=== PATIENT | female | born 1980 | race Caucasian/White ===

== ENCOUNTER → 2023-11-04 14:23 | Outpatient (REF) | payer OTHER, SELFPAY | LOC: RAD 14:23 | PROVIDERS: ATTENDING PHYSICIAN Physician Assistant | DX: I82.401 Acute embolism and thrombosis of unspecified deep veins of right lower extremity (principal) | CPT/HCPCS: 93971 ==

== ENCOUNTER → 2024-02-07 15:16 | Outpatient (REF) | payer OTHER, SELFPAY | LOC: MRI 3T 15:16 | PROVIDERS: ATTENDING PHYSICIAN Orthopaedic Surgery Orthopaedic Surgery of the Spine; FAMILY PHYSICIAN Physician Assistant | DX: M48.02 Spinal stenosis, cervical region (principal) | CPT/HCPCS: 72141 ==

== ENCOUNTER → 2024-03-14 16:20 | Outpatient (REF) | payer OTHER, SELFPAY | LOC: HWWDC 16:20 | PROVIDERS: ATTENDING PHYSICIAN Physician Assistant | DX: Z12.31 Encounter for screening mammogram for malignant neoplasm of breast (principal) | CPT/HCPCS: 77063; 77067 ==

== ENCOUNTER 2024-09-19 06:08 | Day surgery (SDC) | payer OTHER, SELFPAY ==
[2024-08-30 10:44] LABS: Hematocrit 37.5 % (37.0-47.0); Hemoglobin 12.2 g/dL (12.0-16.0); Mean Corp Hgb Conc. 32.5 g/dL (33.0-37.0); Mean Corpuscular Hgb 29.2 pg (27.0-31.0); Mean Corpuscular Volume 89.7 fL (81.0-99.0); Mean Platelet Volume 11.2 fL (7.4-10.4); Platelet Count 208 10^3/uL (130-400); Red Blood Cell Count 4.18 10^6/uL (4.20-5.40); Red Cell Dist. Width 13.2 % (11.5-14.5); White Blood Cell Count 5.7 10^3/uL (4.8-10.8)
[2024-08-30 11:33] LABS: ALT (SGPT) 22 U/L (0-35); AST (SGOT) 24 U/L (14-36); Albumin 3.9 g/dl (3.5-5.0); Alkaline Phosphatase 42 U/L (38-126); Blood Urea Nitrogen 15 mg/dl (7-17); Calcium 8.7 mg/dl (8.4-10.2); Carbon Dioxide 26 mmol/L (22-30); Chloride 103 mmol/L (98-107); Glucose 131 mg/dl (70-99); Sodium 136 mmol/L (135-145); Total Bilirubin 0.3 mg/dl (0.2-1.3); Total Protein 6.4 g/dl (6.3-8.2); eGFR > 60.00
[2024-08-30 12:31] VITALS: BMI 32.4
[2024-09-13 10:11] VITALS: BMI 32.4
[2024-09-19] VITALS (20 sets, daily range): BP systolic 121–181; BP diastolic 63–115; PULSE 92; O2SAT 98
[2024-09-19] MEDS: LYRICA 150 MG PO (07:27)
[2024-09-19] MEDS: SKELAXIN 800 MG PO ×2 (07:27→15:37)
[2024-09-19] MEDS: CELEBREX 200 MG PO (07:27)
[2024-09-19] MEDS: NORMOSOL-R/PLASMALYTE-A 1000 IV ×2 (07:38→13:45)
--- NOTE | 2024-09-19 08:20 | W.DS.TRANS ---
DC Summary - [employer]
-
Discharge Instructions:
Sleep Apnea Risk Low
Discharge Diagnosis/Procedures C3-[address] Chavarria 09/19/24
Diet As tolerated
Activity No strenuous activity
Driving Restrictions No driving
Instructions:
Stand-Alone Forms: Chavarria Cervical D/C Inst.
Changes to Home Medications: Yes
Discharge Medications:
DC Medications w/original date entered in [facility]
alprazolam 0.5 mg tablet 0.5 mg PO DAILY PRN anxiety 09/10/24
bupropion HCl 150 mg 24 hr tablet, extended release (Wellbutrin XL) 150 mg PO DAILY 09/10/24
lisinopril 20 mg tablet 20 mg PO DAILY 09/10/24
melatonin 3 mg tablet 3 mg PO HS PRN insomnia 09/10/24
oxycodone 5 mg tablet 15 mg PO TID PRN Pain 09/10/24
pregabalin 100 mg capsule 100 mg PO HS 09/10/24
pregabalin 50 mg capsule 50 mg PO TID 09/10/24
Saccharomyces boulardii 250 mg capsule (Florastor) 250 mg PO BID #1 cap 09/19/24
acetaminophen 325 mg tablet (Tylenol) 650 mg (2 x 325 mg) PO QID #1 tab 09/19/24
cephalexin 500 mg capsule 500 mg PO QID infection prevention #20 caps 09/19/24
dexamethasone 4 mg tablet 4 mg PO BID inflammation #6 tabs 09/19/24
docusate sodium 100 mg capsule (Colace) 100 mg PO BID stool softner #1 cap 09/19/24
magnesium hydroxide 400 mg/5 mL oral suspension (Milk of Magnesia) 30 ml PO HS PRN Constipation #1 mL 09/19/24
sennosides 8.6 mg tablet (Senokot) 17.2 mg (2 x 8.6 mg) PO BID laxative #2 tabs 09/19/24
Home Medication Changes
Saccharomyces boulardii 250 mg capsule (Florastor) 250 mg PO BID #1 cap 09/19/24
acetaminophen 325 mg tablet (Tylenol) 650 mg (2 x 325 mg) PO QID #1 tab 09/19/24
cephalexin 500 mg capsule 500 mg PO QID infection prevention #20 caps 09/19/24
dexamethasone 4 mg tablet 4 mg PO BID inflammation #6 tabs 09/19/24
docusate sodium 100 mg capsule (Colace) 100 mg PO BID stool softner #1 cap 09/19/24
magnesium hydroxide 400 mg/5 mL oral suspension (Milk of Magnesia) 30 ml PO HS PRN Constipation #1 mL 09/19/24
sennosides 8.6 mg tablet (Senokot) 17.2 mg (2 x 8.6 mg) PO BID laxative #2 tabs 09/19/24
Pending Results: No
[2024-09-19] MEDS: DILAUDID 0.5 MG IV ×5 (10:08→11:55)
[2024-09-19] MEDS: VALIUM INJECTION 2.5 MG IV ×2 (10:36→10:48)
[2024-09-19] MEDS: TYLENOL 1000 MG PO ×2 (13:43→17:17)
[2024-09-19] MEDS: ULTRAM 50 MG PO ×3 (13:44→20:40)
[2024-09-19] MEDS: SENOKOT PO ×2 (13:44→20:40)
[2024-09-19] MEDS: COLACE PO ×2 (13:44→20:40)
--- NOTE | 2024-09-19 14:19 | PTCARENOTE ---
Pt arrived to 2S in bed. Full assessment completed. Neurovascular assessment WDL. R anterior neck DSG C/D/I, aspen collar maintained. IVF infusing per order. Pt instructed to ring for assistance getting OOB, verbalized understanding. Bed locked and
in the lowest position, safety maintained. Oriented to room and call funes. Family at bedside.
[2024-09-19] MEDS: WELLBUTRIN XL (24 hour extended release) 150 MG PO (14:38)
[2024-09-19] MEDS: ANCEF 5 IV ×2 (14:38→22:42)
[2024-09-19] MEDS: ROXICODONE 15 MG PO ×2 (15:37→19:49)
[2024-09-19] MEDS: LYRICA 75 MG PO (15:37)
[2024-09-19] MEDS: XANAX 0.5 MG PO (20:42)
[2024-09-19] MEDS: LYRICA 100 MG PO (22:42)
[2024-09-19] MEDS: LYRICA PO (22:46)
[2024-09-20] MEDS: ULTRAM 50 MG PO ×3 (00:03→07:51)
[2024-09-20] MEDS: TYLENOL 1000 MG PO ×2 (00:03→05:52)
[2024-09-20] MEDS: SKELAXIN 800 MG PO ×2 (00:03→07:51)
[2024-09-20 03:05] VITALS: BP 153/99
[2024-09-20] MEDS: ROXICODONE 15 MG PO ×2 (03:10→09:30)
[2024-09-20] MEDS: NORMOSOL-R/PLASMALYTE-A 1000 IV (03:12)
[2024-09-20 06:48] LABS: Hematocrit 36.9 % (37.0-47.0); Hemoglobin 12.3 g/dL (12.0-16.0)
[2024-09-20 07:00] VITALS: BP 165/94
--- NOTE | 2024-09-20 07:02 | PTCARENOTE ---
Pt complaining pain medication regimen not effective. medicated with scheduled and PRN meds for pain throughout shift. upon reassessment pt found to be sleeping between care. when woken for scheduled meds pt complaining 10/10 pain. when reassessed
pt to be found sleeping.
[2024-09-20 07:30] LABS: Blood Urea Nitrogen 11 mg/dl (7-17); Calcium 8.5 mg/dl (8.4-10.2); Carbon Dioxide 25 mmol/L (22-30); Chloride 105 mmol/L (98-107); Estimated Creatinine Clearance > 125 ml/min; Glucose 100 mg/dl (70-99); Potassium 4.4 mmol/L (3.5-5.1); Sodium 139 mmol/L (135-145); eGFR > 60.00
[2024-09-20] MEDS: COLACE 100 MG PO (07:50)
[2024-09-20] MEDS: LYRICA 75 MG PO (07:51)
[2024-09-20] MEDS: WELLBUTRIN XL (24 hour extended release) 150 MG PO (07:51)
[2024-09-20] MEDS: SENOKOT 17.2 MG PO (07:51)
--- NOTE | 2024-09-20 07:51 | W.DS.TRANS ---
Addendum entered and electronically signed by Kira Hirsch PA-C 09/20/24 10:43:
ASA 81MG DAILY-BEGIN POD#5
Original Note:
DC Summary - Corporate Accounting Manager
-
Discharge Instructions:
Sleep Apnea Risk Low
Discharge Diagnosis/Procedures C3-7 ACDF Chavarria 09/19/24
Diet As tolerated
Activity No strenuous activity
Driving Restrictions No driving
Instructions:
Stand-Alone Forms: Chavarria Cervical D/C Inst.
Changes to Home Medications: No
Discharge Medications:
DC Medications w/original date entered in [facility]
alprazolam 0.5 mg tablet 0.5 mg PO DAILY PRN anxiety 09/10/24
bupropion HCl 150 mg 24 hr tablet, extended release (Wellbutrin XL) 150 mg PO DAILY 09/10/24
lisinopril 20 mg tablet 20 mg PO DAILY 09/10/24
melatonin 3 mg tablet 3 mg PO HS PRN insomnia 09/10/24
oxycodone 5 mg tablet 15 mg PO TID PRN Pain 09/10/24
pregabalin 100 mg capsule 100 mg PO HS 09/10/24
pregabalin 50 mg capsule 50 mg PO TID 09/10/24
Saccharomyces boulardii 250 mg capsule (Florastor) 250 mg PO BID #1 cap 09/19/24
acetaminophen 325 mg tablet (Tylenol) 650 mg (2 x 325 mg) PO QID #1 tab 09/19/24
cephalexin 500 mg capsule 500 mg PO QID infection prevention #20 caps 09/19/24
dexamethasone 4 mg tablet 4 mg PO BID inflammation #6 tabs 09/19/24
docusate sodium 100 mg capsule (Colace) 100 mg PO BID stool softner #1 cap 09/19/24
magnesium hydroxide 400 mg/5 mL oral suspension (Milk of Magnesia) 30 ml PO HS PRN Constipation #1 mL 09/19/24
sennosides 8.6 mg tablet (Senokot) 17.2 mg (2 x 8.6 mg) PO BID laxative #2 tabs 09/19/24
Home Medication Changes
Pending Results: No
--- NOTE | 2024-09-20 07:51 | W.PN.SP ---
Today's Communication / Plan
-
s/p acdf
Post op course as expected
PT
D/c today
Seeing pain verification specialist tomorrow
Subjective / Objective
Subjective Data
Pt very anxious
Also on chronic pain medications
Arm feels better
Denies weakness but a lot of pain in neck
Objective Data
Vital Signs
Temp Pulse Resp BP Pulse Ox
98.4 F 96 20 165/94 98
09/20/24 07:00 09/20/24 07:00 09/20/24 07:00 09/20/24 07:00 09/20/24 07:00
Intake and Output
09/19/24 09/20/24 09/21/24
06:59 06:59 06:59
Intake Total 2990 / 2990
Output Total 1200 / 1200
Balance 1790 / 1790
Intake:
Oral fluids 990 / 990
IV fluids (Total) 2000 / 2000
Normosol 400 / 400
Output:
Urine, Voided 1200 / 1200
Other:
Number of approximated MODERATE 3
amounts of urine
Lab Data
09/20/24 05:18
09/20/24 05:17
Physical Exam
-
Moving both UE 5/5
[2024-09-20] MEDS: XANAX PO (07:54)
[2024-09-20] MEDS: ZESTRIL 10 MG PO (07:54)
[2024-09-20 09:46] VITALS: BP 156/90; PULSE 83; O2SAT 97
--- NOTE | 2024-09-20 10:35 | CM ---
Met with pt and her fiance at bedside
Pt reports she lives in a 1 story home; 1 step to enter
Independent with ADL's, assist as needed - difficulty moving upper extremities, employed FT - works from home, drives
DME - rolling walker, single point cane, wheel chair
SNF/HH - no past hx
Has ride at discharge
PCP - Cathy Walsh
Pharm - [facility], [place]
Plan - anticipate home no needs
--- NOTE | 2024-09-20 10:37 | W.PN.ORTHO ---
Today's Communication / Plan
-
d/c
Assessment
.
Distal Motor Intact: Yes
Dressing:
Clean, dry and intact.
Assessment:
Chronic pain-f/u pain specialist
Pain across posterior neck-likely spasm-full use of arms and hands, sensation intact
Hx DVT per patient-saw heme and denies clotting disorder-have advised purchase of SCD device at home, frequent ambulation-would start baby asa POD#5
-
Plan
.
Surgery / Date: C3-[address] Chavarria 09/19/24
DVT Prophylaxis: Aspirin (baby asa 81mg POD#5)
Activity:
Out of bed.
PT/OT
Discharge Plan: Home
Subjective
.
.:
Pain across bottom of neck
Vital Signs and Labs
.
Vital Signs and Labs:
Lab Results
09/20/24 05:18
09/20/24 05:17
Temp Pulse Resp BP Pulse Ox
98.4 F 96 20 165/94 98
09/20/24 07:00 09/20/24 07:54 09/20/24 07:00 09/20/24 07:54 09/20/24 07:00
Physical Exam
-
HEENT: No pallor, cyanosis, or jaundice. Throat clear.
NECK: Supple. No JVD.
RESPIRATORY: Lungs clear to auscultation.
CVS: S1, S2 normal. RRR.� No murmur, rub or gallop.
ABDOMEN: Soft, non-tender. No distension. BS+/normal.
EXTREMITIES: strength equal, no calf pain with palpation
DOSIMETRIST: AOx3. No focal deficits. accounts receivable associate grossly intact
[2024-09-20] MEDS: DECADRON 4 MG IV (10:49)
[2024-09-20] MEDS: FLEXERIL 10 MG PO (10:49)
[2024-09-20 11:15] VITALS: BP 135/85
[2024-09-20 12:48] VITALS: BP 135/85; PULSE 78
[2024-09-20] MEDS: TYLENOL PO (12:51)
== END 2024-09-20 13:25 | disposition home or self-care (01) ==
LOC: SDS 06:08
PROVIDERS: Physician Assistant Medical; ATTENDING PHYSICIAN Orthopaedic Surgery Orthopaedic Surgery of the Spine; FAMILY PHYSICIAN Physician Assistant
DX: M48.02 Spinal stenosis, cervical region (principal); G95.89 Other specified diseases of spinal cord
CPT/HCPCS: 22554; 22853; 20930; C1776; 36415; 72020; 80048; 80053; 85014; 85018; 85027; 87070; 97162; 97166; 97530; 97535; C1713

== ENCOUNTER 2024-10-23 16:37 | Emergency (ER) | payer OTHER, SELFPAY ==
[2024-10-23 16:38] VITALS: BP 151/86
--- NOTE | 2024-10-23 17:07 | ED.GENMED ---
History of Present Illness
General
Chief Complaint: Skin Surface Trauma
Source: patient
Exam Limitations: none
Time Seen by Provider: 10/23/24 17:06
Nursing documentation reviewed up to this point in time: agreed with
History of Present Illness
History of Present Illness:
Patient is a 44-year-old female presenting to the emergency with laceration to right third digit. This occurred just prior to arrival. Patient states that she put her hand in the sink to clean dishes and she sliced it on a 'pampered abstract checker slicer'.
She states this likely was somewhat similar to a mandolin other different patient reports bleeding from the tip of her right third finger that would not stop at home. Patient denies any numbness/tingling in right digit or hand.
Patient unsure date of last tetanus shot.
Patient arrives in a cervical collar as she has a recent cervical spine surgery.
Past History
Past History
ED Past Medical History: Other (History of migraine)
ED Past Surgical History: Tonsilectomy and Other (With some teeth extraction)
Social History
Tobacco: Non-smoker
Alcohol: None
Drug: None
Personal: Single
Living: with family
Employment: Employed
Family History
Family History: Other (Her mother has pulmonary embolism and alpha-1 antitrypsin deficiency.)
Review of Systems
Review of Systems
Allergies reviewed?: Yes
All Other Systems: ROS reviewed and negative except as documented in HPI and ROS
Phy Exam
Physical Exam
Physical Exam:
Vitals: Patient's vital signs are stable. Afebrile
General: Patient is well appearing, no acute distress
Skin: Very superficial 1 cm laceration at tip of right finger, not actively bleeding. Wound edges well-approximated
Head: Normocephalic, atraumatic
Throat: Protecting airway
Neck: Normal ROM, no cervical spine tenderness
Cardiac: Regular rate
Pulm: No apparent respiratory distress
Abdomen: Nondistended
Extremities: Superficial approximately 1 cm laceration at tip of right third digit. Cap refill less than 2 seconds. Flexion/extension against resistance intact in DIP, PIP, MCP joints of right third digit. Palpable radial pulse and right upper
extremity
Neuro: Grossly intact
Psychiatric: Normal affect.
Course
Vital Signs
Initial and Last Documented VS:
Initial Vital Signs
Temp Pulse Resp BP Pulse Ox
98.8 F 88 16 151/86 98
10/23/24 16:38 10/23/24 16:38 10/23/24 16:38 10/23/24 16:38 10/23/24 16:38
Last Documented Vital Signs
Temp Pulse Resp BP Pulse Ox
98.8 F 88 16 151/86 98
10/23/24 16:38 10/23/24 16:38 10/23/24 16:38 10/23/24 16:38 10/23/24 16:38
Procedures
Laceration Closure
Right Third Finger(s):
Status of Wound: clean
Size of Wound in cm: 1
Description of Wound Edges: sharp
Preparation: cleaned with saline
Anesthesia: other
Revision/Debridement: routine- no revision
Wound exploration: explored to base- no FB
Type of Closure: Dermabond-skin glue
MDM/Problems Addressed
Differential Diagnosis Includes:
Not limited to: Skin laceration, etc.
MDM/Problems Addressed:
44-year-old female with superficial laceration to tip of right third digit occurring just prior to arrival. Hypertensive, otherwise stable vital signs. Physical exam as above. There is a very superficial 1 cm laceration at tip of third digit, not
actively bleeding by my assessment. No evidence of tendon involvement. Right hand/digits neurovascularly intact. No other injuries. Wound irrigated thoroughly with normal saline. Wound edges well-approximated with no active bleeding. Do not
feel sutures indicated. Did place skin glue with excellent approximation of the wound edges. Patient unsure last tetanus shot although declines booster today. She states she will contact her PCP tomorrow to inquire about last vaccination and have
it updated if needed. Patient aware of risks. Patient stable for discharge home
Chronic conditions affecting care:
N/A
Acute Exacerbation and/or Progression of Chronic Illness:
N/A
*Pulse Oximetry
Patient hypoxic: no
*EKG
Interpreted by ED Provider?: NA
*Blasting Miner Interpretation
Rate: Blasting Miner- N/A
*Critical Care Note
Total Time (30-74mins, 75-104mins- exclusive of procedures): Not Applicable
ED Attending Note
-
Portions of this chart may have been created with voice recognition software.� Occasional wrong word or��sound alike� substitutions may have occurred due to the inherent limitations of voice recognition software.
Discharge Plan
Departure
Patient Disposition: Home (Routine Discharge)
Date of Disposition: 10/23/24
Time of Disposition: 17:34
Patient with high blood pressure during this ER visit?: Yes
Condition: Good
Discharge Problem:
Laceration of right middle finger
Instructions: Laceration Repair With Glue (DC), BLOOD PRESSURE
Prescriptions:
No Action
lisinopril 20 mg Tablet
20 mg PO DAILY
melatonin 3 mg Tablet
3 mg PO HS PRN (Reason: insomnia)
alprazolam 0.5 mg Tablet
0.5 mg PO DAILY PRN (Reason: anxiety)
bupropion HCl [Wellbutrin XL] 150 mg Tablet Extended Release 24 Hr
150 mg PO DAILY
pregabalin 50 mg Capsule
50 mg PO TID
pregabalin 100 mg Capsule
100 mg PO HS
oxycodone 5 mg tablet
15 mg PO TID PRN (Reason: Pain)
cephalexin 500 mg capsule
500 mg PO QID Qty: 20 0RF
docusate sodium [Colace] 100 mg capsule
100 mg PO BID Qty: 1 0RF
dexamethasone 4 mg tablet
4 mg PO BID Qty: 6 0RF
Rx Instructions:
take with food
post-op use only
Saccharomyces boulardii [Florastor] 250 mg capsule
250 mg PO BID Qty: 1 0RF
magnesium hydroxide [Milk of Magnesia] 400 mg/5 mL suspension
30 ml PO HS PRN (Reason: Constipation) Qty: 1 0RF
sennosides [Senokot] 8.6 mg tablet
17.2 mg PO BID Qty: 2 0RF
acetaminophen [Tylenol] 325 mg tablet
650 mg PO QID Qty: 1 0RF
Rx Instructions:
SCHEDULED DOSING
aspirin 81 mg tablet,delayed release (DR/EC)
81 mg PO DAILY Qty: 1 0RF
Rx Instructions:
*BEGIN POD#5 09/24/24
Referrals:
Cathy Walsh PA [Family Provider] -
Activity Restrictions/Additional Instructions:
RETURN TO THE EMERGENCY DEPARTMENT WITH ANY SIGNS OF INFECTION AROUND WOUND OR WORSENING IN CURRENT SYMPTOMS
-As discussed�your laceration was closed with skin glue today in the emergency department. This will dissolve on its own over the course of a week.
-Keep wound clean and dry. Keep current bandage on for the next 24 hours and then be sure to wash daily with soap and water. Monitor closely for signs of infection.
Monitor your symptoms closely and return to the emergency department any acute worsening/new symptoms or any other concerns
Interventions
Interventions:
*Risk Screen - Suicide Last Done: 10/23/24 16:38
*General Assessment Last Done: 10/23/24 16:38
*Neglect/Abuse Screening Last Done: 10/23/24 16:52
*ED COVID-19 Vaccine History Last Done: 10/23/24 16:38
*Nursing Disposition Last Done: 10/23/24 17:47
ED-Skin Assessment Last Done: 10/23/24 16:52
Discharge Date and Time
Discharge Date/Time: 10/23/24 17:55
Print Language: GERMAN
== END 2024-10-23 17:55 | disposition home or self-care (01) ==
LOC: EMR 16:37
PROVIDERS: EMERGENCY PHYSICIAN Student in an Organized Health Care Education/Training Program; FAMILY PHYSICIAN Physician Assistant
DX: S61.212A Laceration without foreign body of right middle finger without damage to nail, initial encounter (principal); W27.8XXA Contact with other nonpowered hand tool, initial encounter
CPT/HCPCS: 12001; 99282

== ENCOUNTER → 2025-02-07 15:55 | Outpatient (REF) | payer OTHER, SELFPAY | LOC: RAD 15:55 | PROVIDERS: ATTENDING PHYSICIAN Physician Assistant | DX: N93.9 Abnormal uterine and vaginal bleeding, unspecified (principal) | CPT/HCPCS: 76830; 76856 ==

== ENCOUNTER 2025-03-18 18:04 | Inpatient (IN) | payer OTHER, SELFPAY ==
[2025-03-14 13:21] VITALS: BP 151/112
[2025-03-14] MEDS: MORPHINE SULFATE 4 MG IV (14:10)
[2025-03-14] MEDS: NSS 1000 IV ×2 (14:10→17:59)
[2025-03-14] MEDS: PROTONIX IV 40 MG IV (14:11)
[2025-03-14] MEDS: ZOFRAN 4 MG IV (14:12)
[2025-03-14 14:16] LABS: Hematocrit 40.8 % (37.0-47.0); Hemoglobin 13.6 g/dL (12.0-16.0); Mean Corp Hgb Conc. 33.3 g/dL (33.0-37.0); Mean Corpuscular Volume 87.0 fL (81.0-99.0); Nucleated Red Blood Cells % 0 %; Platelet Count 267 10^3/uL (130-400); Red Cell Dist. Width 14.2 % (11.5-14.5)
[2025-03-14 14:35] LABS: HCG, Serum Qualitative Screen Negative
[2025-03-14] MEDS: DILAUDID 1 MG IV ×3 (14:41→21:09)
[2025-03-14 14:46] LABS: Troponin I 0.192 ng/ml
[2025-03-14 14:52] VITALS: BP 156/75
[2025-03-14 14:52] LABS: ALT (SGPT) 25 U/L (0-35); AST (SGOT) 26 U/L (14-36); Albumin 4.4 g/dl (3.5-5.0); Alkaline Phosphatase 55 U/L (38-126); Blood Urea Nitrogen 14 mg/dl (7-17); Calcium 9.8 mg/dl (8.4-10.2); Carbon Dioxide 24 mmol/L (22-30); Chloride 106 mmol/L (98-107); Glucose 162 mg/dl (70-99); Lipase 17 U/L (23-300); Potassium 4.1 mmol/L (3.5-5.1); Sodium 138 mmol/L (135-145); Total Protein 7.2 g/dl (6.3-8.2); eGFR > 60.00
--- NOTE | 2025-03-14 15:53 | ED.GENMED ---
History of Present Illness
General
Chief Complaint: Abdominal Symptoms
Source: patient
Exam Limitations: none
Time Seen by Provider: 03/14/25 13:49
Nursing documentation reviewed up to this point in time: agreed with
History of Present Illness
History of Present Illness:
45 y/o F with h/o anxiety, depression, chronic pain on opiates, htn
here with sudden epigastric pain this am that woke her up 6 am
then onset of diarrhea then vomiting
has vomited and had many episodes of diarrhea and now just dry heaving
sever [place]
severe epigastric pain, nonradiating
nothing taken for symptoms
has also had chills
she denies chest pain, sob
she is very anxious
tried taking her oxycodone today at 10 am and vomited
pt denies use of cannabis
no cardiac history
Past History
Past History
ED Past Medical History: Psychiatric and Other (History of migraine)
ED Past Surgical History: Tonsilectomy and Other (With some teeth extraction)
Social History
Tobacco: Non-smoker
Alcohol: None
Drug: None
Personal: Single
Living: with family
Employment: Employed
Family History
Family History: Other (Her mother has pulmonary embolism and alpha-1 antitrypsin deficiency.)
Review of Systems
Review of Systems
Allergies reviewed?: Yes
All Other Systems: Not applicable
Phy Exam
Physical Exam
Physical Exam:
GENERAL: Alert , severe distress;
EYE: pupils equal and reactive
NECK: Supple
ENT: o/p clr, mmm.
CARDIAC: Regular rate and rhythm .
LUNGS: Clear breath sounds bilaterally, no acute respiratory distress, no wheezes/rales/rhonchi
ABDOMEN: Soft, moderate epigastric tendenress; nondistended, normal bowel sounds
NEUROLOGICAL: Alert and oriented, no focal neuro deficits
SKIN: Warm and dry, skin intact.
MUSCULOSKELETAL: No edema, well perfused. neg sheryl's sign
PSYCH: anxious
Course
Orders/Labs/Results
Orders:
Orders
03/14/25 13:54
Chest X-ray Portable [CR Chest Portable - 1 View] Stat
Comment:
Reason For Exam: seevere abd pain
Reason Study Needs to be Portable: Patient Unstable
03/14/25 13:55
0.9% Sodium Chloride 1000 ml [Nss] 1,000 ml IV BOLUS
Morphine Sulfate 4 mg IV NOW STA
Ondansetron Injectable [Zofran] 4 mg IV NOW STA
Pantoprazole [Protonix IV] 40 mg IV NOW STA
Test Result ONCE
03/14/25 14:00
Complete Blood Count/With Diff Urgent
Comprehensive Metabolic Panel Urgent
HCG, Serum Qualitative Screen Urgent
Lactic Acid Urgent
Lipase Urgent
Troponin I Urgent
03/14/25 14:14
Electrocardiogram (*1) Urgent
Reason for Study: Abdominal Pain
EKG- Treatment ONCE
03/14/25 14:36
HYDROmorphone [Dilaudid] 1 mg IV NOW STA
03/14/25 14:50
CT Chest/abd/pelvis Angio W/wo Urgent
Comment:
Reason For Exam: severe abd pain, elevated trop
03/14/25 16:21
Prochlorperazine [Compazine] 10 mg IV NOW STA
03/14/25 16:22
Famotidine [Pepcid] 20 mg IV NOW STA
03/14/25 16:24
Admit/Transfer Patient As Directed
Co-Sign Provider:
Level of Care: Observation services
Assign to:: Medical/Surgical
Physician / Group: Sena Hoover
Diagnosis: gastroenteritis
PRN Pain Medication Management As Directed
May give lesser potent ordered pain med per pt: Yes
preference::
Protocol:: Medication orders for pain may be administered in a
manner that supports deferring to patient preference
when the pt is:
- Requesting an ordered lesser potent pain medication.
Least to most potent pain medications are defined
as: acetaminophen < NSAID < tramadol < opioids
(morphine, oxycodone, hydromorphone).
- Requesting a lesser dose of the same medication IF
ORDERED.
- Requesting a less intrusive route of administration
if both routes are prescribed by the provider (PO <
IV).
03/14/25 16:25
Code Status As Directed
Resuscitation Status: Full Code
0.9% Sodium Chloride [Nss (Preservative Free)] 8 ml IV NOW STA
03/14/25 16:33
Transfer Patient As Directed
Transfer to: Telemetry
Reason for Telemetry: Chest Pain syndromes
Date to Stop Telemetry: 03/16/25
Time to Stop Telemetry: 11:00
03/16/25 11:00
DC Protocol for Telemetry ONCE
Abnormal Lab Results
03/14/25
14:00
WBC 11.4 H 10^3/uL
(4.8-10.8)
MPV 11.0 H fL
(7.4-10.4)
Absolute Neuts (auto) 9.6 H 10^3/uL
(1.4-6.5)
Absolute Lymphs (auto) 1.0 L 10^3/uL
(1.2-3.4)
Absolute Monos (auto) 0.7 H 10^3/uL
(0.1-0.6)
Neutrophils % 84.3 H %
(42.2-75.2)
Lymphocytes % 9.1 L %
(20.5-51.1)
Glucose 162 H mg/dl
(70-99)
Troponin I 0.192 H* ng/ml
Lipase 17 L U/L
(23-300)
03/14/25 14:00
03/14/25 14:00
Vital Signs
Initial and Last Documented VS:
Initial Vital Signs
Temp Pulse Resp BP Pulse Ox
37.1 C 60 18 151/112 100
03/14/25 13:21 03/14/25 13:21 03/14/25 13:21 03/14/25 13:21 03/14/25 13:21
Last Documented Vital Signs
Temp Pulse Resp BP Pulse Ox
37.1 C 58 18 172/78 100
03/14/25 13:21 03/14/25 18:10 03/14/25 18:10 03/14/25 18:10 03/14/25 18:10
MDM/Problems Addressed
Differential Diagnosis Includes:
PUD perforation, aoritc dissection, gallstones, gastroenteritis
MDM/Problems Addressed:
45 y/o F
severe epigatsric pain nonradiating with subjective chills, nauesa, vomting, diarrhea this am
no cardiac history
hypertensive, tachy, moaning, uncomfortable
epigastric tenderness, no masses
ekg normal nonischemic
pt has elevated trop 0.1
ct dissection study ordered
CT neg for aortic syndrome
suspect viral gastritis/enteritis
trend trops
admit
*Pulse Oximetry
SaO2: 96
Oxygen Mode of Delivery: Room air
Patient hypoxic: no (100)
*Critical Care Note
Total Time (30-74mins, 75-104mins- exclusive of procedures): Not Applicable
ED Attending Note
-
Portions of this chart may have been created with voice recognition software.� Occasional wrong word or��sound alike� substitutions may have occurred due to the inherent limitations of voice recognition software.
Discharge Plan
Departure
Patient Disposition: Admit
Date of Disposition: 03/14/25
Time of Disposition: 16:03
Admit to: Telemetry
Presentation/result/management discussed w/ accepting MD/DO: Hospitalist
Condition: Fair
Covid-19: Not Applicable
Discharge Problem:
Gastroenteritis, Non-ST elevation [place] (NSTEMI)
Interventions
Interventions:
*Risk Screen - Suicide Last Done: 03/14/25 13:21
*General Assessment Last Done: 03/14/25 13:21
*Neglect/Abuse Screening Last Done: 03/14/25 13:21
*ED COVID-19 Vaccine History Last Done: 03/14/25 13:21
PQ-[id number] Assessment Last Done: 03/14/25 15:10
--- NOTE | 2025-03-14 16:10 | HPS.HSE ---
Addendum entered and electronically signed by Sena Hoover MD 03/14/25 17:56:
5:50, patient with chest pain, states she can't get comfortable
pain related to positioning in bed, not reproducible
obtaining EKG now
will give aspirin and IV Dilaudid (patient due for oxycodone she would take at home)
with chest pain in setting of elevated Troponin, will consult Cardiology
Original Note:
Family Physician
-
Family Physician: Cathy Walsh
Chief Complaint
-
epigastric pain
History of Present Illness
Ms. Aury Hayward is a 45 yo woman with hx anxiety/depression, chronic pain on opiates, essential HTN presents to the ER with sudden epigastric pain followed by vomiting and diarrhea.
Patient appears very uncomfortable/anxious during exam. She states she continues to have mid-epigastric pain, is not feeling better and remains nauseated. She vomited multiple times this morning and had diarrhea - not black or bloody. No fever, +
chills. No chest pain or shortness of breath. No LE swelling. No rash. She cannot remember eating anything out of the ordinary. No sick contacts.
She does not smoke cannabis.
Medical History
Past Medical History
Past Medical History: Reports Other (anxiety/depression, chronic pain on opiates, essential HTN)
Past Surgical History: Reports Tonsilectomy
Social History
Tobacco: Non-smoker
Alcohol: None
Family History
Family History: Not pertinent
Allergies / Home Medications
Allergies reflects when Allergies were last updated in [facility].
Home Medications with original date entered in [facility]
Allergy/Medication List:
Allergies
Allergy/AdvReac Type Severity Reaction Status Date / Time
fruit Allergy Tongue Uncoded 03/14/25 13:25
Swelling
Home Medications
alprazolam 0.5 mg tablet 0.5 mg PO DAILYPRN PRN anxiety 09/10/24
bupropion HCl 150 mg 24 hr tablet, extended release (Wellbutrin XL) 150 mg PO DAILY Mental Health/Anxiety 09/10/24
lisinopril 20 mg tablet 20 mg PO DAILY Blood Pressure 09/10/24
pregabalin 100 mg capsule 100 mg PO HS Pain 09/10/24
pregabalin 50 mg capsule 50 mg PO TID Pain 09/10/24
oxycodone 15 mg tablet 15 mg PO 5/D Pain 03/14/25
Review of Systems
-
History Source: Patient
A 12 point ROS was completed and negative except as noted: Yes
Physical Exam
Vital Signs
Vital Signs
Temp Pulse Resp BP Pulse Ox
98.7 F 55 15 156/75 96
03/14/25 13:21 03/14/25 14:53 03/14/25 14:53 03/14/25 14:52 03/14/25 15:58
Physical Exam
General: Other (appears uncomfortable and anxiou )
HEENT: PERRLA
Respiratory: Clear; No Wheezes
Cardiac: S1/S2 and Regular Rhythm
GI: Soft and Other (mid-epigastric tenderness, no rebound or guarding)
Musculoskeletal: No Edema
Skin: Warm and Dry; No Rash
Neuro: AO x 3
Psych: Calm
Laboratory Results
-
03/14/25 14:00
03/14/25 14:00
Laboratory Results
Lactic Acid 2.0 mmol/L (0.7-2.0) 03/14/25 14:00
Total Bilirubin 0.6 mg/dl (0.2-1.3) 03/14/25 14:00
AST 26 U/L (14-36) 03/14/25 14:00
ALT 25 U/L (0-35) 03/14/25 14:00
Alkaline Phosphatase 55 U/L (38-126) 03/14/25 14:00
Troponin I 0.192 ng/ml H* 03/14/25 14:00
Lipase 17 U/L (23-300) L 03/14/25 14:00
Data Reviewed
-
Diagnostic Radiology: Report Reviewed by me
Lab Data: Labs Reviewed by me
Impression/Plan
-
Ms. Aury Hayward is a 45 yo woman with hx anxiety/depression, chronic pain on opiates, essential HTN presents to the ER with sudden epigastric pain followed by vomiting and diarrhea.
Triage VS: T 37.1C, P 60, RR 18, BP 151/112, SpO2 100%
LABS: WBC 11.4, HG 13.6, PLT 267, Na 138, K+ 4.1, Cl 106, CO2 24, BUN 14, Cr 0.6, Glucose 162, T. Bili 0.6, AST 26, ALT 25, Trop 0.192, Lipase 17, HCG neg
EKG: sinus bradycardia @ 49 with sinus arrhythmia
CXR
IMPRESSION:
Unremarkable chest
CT A/P
IMPRESSION:
1. There is no CTA evidence of aortic dissection
2. There is a 2.8 cm cyst in the left adnexa
MAR: IV Dilaudid, Morphine, 1L IVF, IV Zofran, IV Protonix
Nausea/Vomiting/Diarrhea
Gastroenteritis
-admit to med/surg
-CT A/P without e/o aortic dissection or acute disease
-continue support care with IVF, IV Compazine PRN, IV Dilaudid PRN
-IV Protonix/Pepcid for possible gastritis contributing to pain
Non-ischemic myocardial injury
-demand in setting of gastroenteritis/dehydration; patient denies chest pain
-trend Troponin
Chronic Pain, Opiate Dependence
-VETERINARY MEAT INSPECTOR oxycodone; IV Dilaudid if cannot tolerate PO
-VETERINARY MEAT INSPECTOR Pregabalin
Anxiety/Depression
-VETERINARY MEAT INSPECTOR Wellbutrin
-VETERINARY MEAT INSPECTOR Xanax PRN (IV ativan if cannot tolerate PO)
Essential HTN
-hold VETERINARY MEAT INSPECTOR Lisinopril for now
Hyperglycemia
-in setting of acute illness
-add on A1c tomorrow
DVT PPx Lovenox subQ
FULL CODE
[2025-03-14] MEDS: COMPAZINE 10 MG IV (16:24)
[2025-03-14] MEDS: PEPCID 20 MG IV ×2 (16:31→20:52)
[2025-03-14] MEDS: NSS (PRESERVATIVE FREE) 8 ML IV (16:42)
[2025-03-14 17:45] VITALS: BP 178/77
[2025-03-14] MEDS: LOW STRENGTH ASPIRIN 324 MG PO (17:59)
[2025-03-14 18:10] VITALS: BP 172/78
[2025-03-14 18:30] LABS: Troponin I 1.040 ng/ml
--- NOTE | 2025-03-14 18:40 | CON.CAR ---
Consultation
Consultation Request
Date/Time Consultation Requested: 03/14/2025 at 6 PM
Date/Time Consultation Performed: 03/31/2025 at 6:30 PM
Requesting Provider: Sena Hoover MD
Performing Provider: Tawanda Irwin MD
Reason for Consultation: chest pain, elevated Troponin
Medical History
-
Chief Complaint: Chest pain
History of Present Illness:
45-year-old female with a history of hypertension and chronic pain on opioids who presents with nausea, vomiting, and diarrhea starting at 6 AM. Cardiology is consulted for elevated troponin and substernal chest pressure. She denies eating any new
or different foods last night or any sick contacts. She went to bed normally last night and woke up at 6 AM with GI symptoms as above. She eventually decided to come to the ER. She was given Dilaudid, morphine, IV fluids, Zofran, and Protonix.
She feels mildly improved. Troponin was checked and was 0.192 -> 1.04. ECG revealed sinus bradycardia with no evidence of ischemia. She reported some substernal chest tightness but this was difficult to differentiate from her GI symptoms.
She is a prior smoker but quit 14 years ago. She denies family history of coronary artery disease, gestational hypertension/diabetes, or inflammatory disorders.
Past Medical History
Past Medical History: HTN and Other (chronic pain)
Social History
Tobacco: Non-Smoker
Alcohol: None
Personal:
Living: With Family
Family History
Family History: Reviewed & Not Pertinent (No CAD)
Allergies / Home Medications
Allergy/AdvReac Type Severity Reaction Status Date / Time
fruit Allergy Tongue Uncoded 03/14/25 13:25
Swelling
�Medication �Instructions �Recorded �Confirmed �Type
alprazolam 0.5 mg tablet 0.5 mg PO DAILYPRN PRN anxiety 09/10/24 03/14/25 History
bupropion HCl 150 mg 24 hr tablet, 150 mg PO DAILY Mental 09/10/24 03/14/25 History
extended release (Wellbutrin XL) Health/Anxiety
lisinopril 20 mg tablet 20 mg PO DAILY Blood Pressure 09/10/24 03/14/25 History
pregabalin 100 mg capsule 100 mg PO HS Pain 09/10/24 03/14/25 History
pregabalin 50 mg capsule 50 mg PO TID Pain 09/10/24 03/14/25 History
oxycodone 15 mg tablet 15 mg PO 5/D Pain 03/14/25 03/14/25 History
Review of Systems
-
All other systems: Negative unless noted
Physical Exam
Vital Signs
Temp Pulse Resp BP Pulse Ox
98.7 F 58 18 172/78 100
03/14/25 13:21 03/14/25 18:10 03/14/25 18:10 03/14/25 18:10 03/14/25 18:10
Lab Results
03/14/25 14:00
03/14/25 14:00
Troponin I 1.040 ng/ml H* D 03/14/25 17:54
Physical Exam
General: Other (uncomfortable appearing)
HEENT: Normocephalic and Anicteric
Respiratory: Clear and Non Labored Respirations
Cardiac: S1/S2 and Regular Rhythm; Negative Murmur or Peripheral Edema
Neuro: AO x 3
Impression / Plan
-
45-year-old female with a history of hypertension and chronic pain on opioids who presents with nausea, vomiting, and diarrhea starting at 6 AM. Cardiology is consulted for elevated troponin and substernal chest pressure.
Troponin elevation
-Suspect this is due to demand in the setting of acute gastroenteritis, nausea, vomiting as well as acute on chronic hypertension
-Trend troponin to peak with ECGs
-No role for heparin, BB, statin at this time as I have a low suspicion for ACS. Will reassess based on symptom and trop trend
-S/p ASA 325 mg
-TTE here or outpatient pending clinical course
Gastroenteritis
-Treatment per primary team
Hypertension
-Continue home lisinopril
Data Reviewed
-
EKG: Tracing Personally Visualized and interpreted
CT Scan: Report Reviewed by me
Labs: Labs Reviewed by me, Discussed with Physician and Discussed with Patient
[2025-03-14 19:40] VITALS: BP 178/98; BMI 33.7
[2025-03-14] MEDS: ROXICODONE 15 MG PO (20:42)
[2025-03-14] MEDS: LR 1000 IV (20:42)
[2025-03-14] MEDS: LOVENOX 40 MG SC (20:42)
[2025-03-14] MEDS: WELLBUTRIN XL (24 hour extended release) PO (20:48)
[2025-03-14] MEDS: LYRICA 100 MG PO (20:52)
[2025-03-14] MEDS: XANAX 0.5 MG PO (21:09)
[2025-03-14] MEDS: ROXICODONE PO (21:34)
[2025-03-14 21:39] LABS: Troponin I 1.600 ng/ml
[2025-03-15] VITALS (8 sets, daily range): BP systolic 98–179; BP diastolic 47–103
[2025-03-15] MEDS: XANAX 0.5 MG PO (02:33)
[2025-03-15] MEDS: DILAUDID 1 MG IV ×2 (02:33→20:46)
[2025-03-15] MEDS: TYLENOL 650 MG PO (02:41)
[2025-03-15 03:20] LABS: Troponin I 1.670 ng/ml
[2025-03-15 06:54] LABS: Hematocrit 35.5 % (37.0-47.0); Hemoglobin 11.8 g/dL (12.0-16.0); Mean Corp Hgb Conc. 33.2 g/dL (33.0-37.0); Mean Corpuscular Volume 87.2 fL (81.0-99.0); Nucleated Red Blood Cells % 0 %; Platelet Count 214 10^3/uL (130-400); Red Cell Dist. Width 14.2 % (11.5-14.5)
[2025-03-15 07:18] LABS: ALT (SGPT) 23 U/L (0-35); AST (SGOT) 32 U/L (14-36); Albumin 3.4 g/dl (3.5-5.0); Alkaline Phosphatase 46 U/L (38-126); Blood Urea Nitrogen 9 mg/dl (7-17); Calcium 8.8 mg/dl (8.4-10.2); Carbon Dioxide 26 mmol/L (22-30); Chloride 109 mmol/L (98-107); Estimated Creatinine Clearance > 125 ml/min; Glucose 122 mg/dl (70-99); Magnesium 1.6 mg/dl (1.6-2.3); Potassium 3.4 mmol/L (3.5-5.1); Sodium 137 mmol/L (135-145); Total Protein 6.0 g/dl (6.3-8.2); eGFR > 60.00
--- NOTE | 2025-03-15 07:19 | W.PN.HOSP.TC ---
Today's Communication/Plan
-
Beta fabienne and Heparin Drip -- concern for acute coronary syndrome
Avoid NSAIDs
Transfer to IVU
Assessment / Plan
Assessment / Plan
Physical Exam
General: Not in acute distress, having periods of pain
HEENT: Normocephalic
Respiratory: Clear to Auscultation Bilaterally
Cardiac: S1/S2 and Regular Rhythm
GI: Soft and Other (mid-epigastric tenderness and left upper quadrant tenderness, no rebound or guarding)
Musculoskeletal: No Edema
Skin: Warm and Dry
Neuro: AAO x 3
Psych: Calm
Assessment/Plan
Ms. Aury Hayward is a 45 yo woman with hx anxiety/depression, chronic pain on opiates and essential hypertension who presented to the emergency room with sudden epigastric pain followed by vomiting (multiple episodes) and diarrhea (not dark black
or bloody). No fever, + chills. No chest pain or shortness of breath. No LE swelling. No rash. She cannot remember eating anything out of the ordinary. No sick contacts. She does not smoke cannabis.
Triage VS: T 37.1C, P 60, RR 18, BP 151/112, SpO2 100%
LABS: WBC 11.4, HG 13.6, PLT 267, Na 138, K+ 4.1, Cl 106, CO2 24, BUN 14, Cr 0.6, Glucose 162, T. Bili 0.6, AST 26, ALT 25, Trop 0.192, Lipase 17, HCG neg
EKG: sinus bradycardia @ 49 with sinus arrhythmia
CXR
IMPRESSION:
Unremarkable chest
CT A/P
IMPRESSION:
1. There is no CTA evidence of aortic dissection
2. There is a 2.8 cm cyst in the left adnexa
MAR: IV Dilaudid, Morphine, 1L IVF, IV Zofran, IV Protonix
Nausea/Vomiting/Diarrhea
Gastroenteritis
Leukocytosis
-admit to med/surg
-Possible viral syndrome
-CT A/P without e/o aortic dissection or acute disease, I communicated on 03/15/25 with radiologist Taj Marley and he said that the CT from 03/14/25 showed: there�s no central or segmental PE but the distal pulmonary
arteries are not well opacified
-continue support care with IVF, IV Compazine PRN, IV Dilaudid PRN
-IV Protonix/Pepcid for possible gastritis contributing to pain
Worsening Leukocytosis
New Fever
Viral Syndrome
-No cough, fever, signs or symptoms of UTI or back pain or any clear source of infection other than the possible gastroenteritis
-Obtain blood cultures
-COVID and Flu both negative
-MRSA pending
-Gastrointestinal source?
Hypokalemia
-Could be from patient's GI symptoms
-Replace
-Add additional magnesium
-Monitor BMP
Concern for Acute Coronary Syndrome
Chest Pain
Troponin Elevation
-Heparin Drip
-Beta Fabienne
-Discussed with cardiology, with elevated troponins and risk factors of obesity, hypertension, history of preeclampsia and impaired fasting glucose, we will need to treat as acute coronary syndrome unless proven otherwise
-Cardiac cath on Tuesday March 18, 2025
-Hopeful it is all myopericarditis (from a possible Viral Syndrome given patient's GI symptoms)
-Consulted cardiology
-Transfer to IVU
Chronic Pain, Opiate Dependence
-TABLE G[employer] FLOOR SUPERVISOR oxycodone -- reduced frequency to avoid drowsiness; IV Dilaudid if cannot tolerate PO
-TABLE G[employer] FLOOR SUPERVISOR Pregabalin
Anxiety/Depression
-TABLE G[employer] FLOOR SUPERVISOR Wellbutrin
-TABLE G[employer] FLOOR SUPERVISOR Xanax PRN (IV ativan if cannot tolerate PO)
Essential HTN
-hold TABLE G[employer] FLOOR SUPERVISOR Lisinopril for now
Hyperglycemia
-in setting of acute illness
-A1c is 5.7
DVT PPx Lovenox subQ
FULL CODE
Anticipated Discharge: > 48 hours
Subjective/Interval History
-
Date of Service: March 15, 2025
Patient was seen and examined. She reported continued chest tightness and right upper and epigastric tightness as well. She said the chest tightness is worse with lying on the bed, better with sitting up but the abdominal pain does not change.
Objective Data
-
Labs:
Laboratory Results
03/15/25
06:37
WBC 13.4 H
Hgb 11.8 L
Hct 35.5 L
Plt Count 214
Sodium 137
Potassium 3.4 L
Chloride 109 H
Carbon Dioxide 26
BUN 9
Creatinine 0.5 L
Glucose 122 H
Calcium 8.8
Total Bilirubin 0.5
AST 32
ALT 23
Alkaline Phosphatase 46
Vital Signs:
Vital Signs
Temp Pulse Resp BP Pulse Ox
100.5 F H 81 18 179/103 98
03/15/25 03:00 03/15/25 03:00 03/15/25 03:00 03/15/25 03:00 03/15/25 03:00
I&O
03/14/25 03/15/25 03/16/25
06:59 06:59 06:59
Intake Total 1480 / 1480
Balance 1480 / 1480
[2025-03-15] MEDS: MAGNESIUM SULFATE 50 IV (07:37)
[2025-03-15] MEDS: LR 1000 IV ×2 (07:39→22:41)
[2025-03-15] MEDS: NSS (PRESERVATIVE FREE) 10 ML IV (07:41)
[2025-03-15] MEDS: PROTONIX IV 40 MG IV (07:41)
[2025-03-15 08:23] LABS: Troponin I 2.220 ng/ml
[2025-03-15 09:08] LABS: Glycohemoglobin (HgbA1c) 5.7 % (4.0-5.6)
[2025-03-15 09:09] LABS: COVID-19 Antigen Negative (Negative)
[2025-03-15] MEDS: LOW STRENGTH ASPIRIN 81 MG PO (09:34)
[2025-03-15] MEDS: WELLBUTRIN XL (24 hour extended release) 150 MG PO (09:34)
[2025-03-15] MEDS: KCL 40 MEQ PO (09:34)
[2025-03-15] MEDS: ZESTRIL 20 MG PO (09:42)
[2025-03-15] MEDS: LYRICA 50 MG PO ×3 (09:46→16:52)
[2025-03-15] MEDS: ROXICODONE PO (10:07)
[2025-03-15] MEDS: ROXICODONE 15 MG PO ×3 (10:32→23:02)
[2025-03-15 11:58] LABS: C-Reactive Protein 18.30 mg/L (0.0-10.00)
[2025-03-15] MEDS: LR IV (13:05)
--- NOTE | 2025-03-15 14:20 | W.PN.CD ---
Today's Communication / Plan
-
start hep gtt
npo p mn tuesday for cath
start bb
check lipids
cm to kwan SGLT 2i
Impression / Plan
-
45-year-old female with a history of hypertension and chronic pain on opioids who presents with nausea, vomiting, and diarrhea starting at 6 AM. Cardiology is consulted for elevated troponin and substernal chest pressure.
[place]: Type 2 (viral myocarditis) vs Type I
-THIS IS A HIGH RISK SITUATION THAT IS A THREAT TO LIFE
-with regional wall motion and trop to 2 will need to treat for ACS (RF: obesity, HTN, h/o preeclampsia, and IFG
-start heparin gtt
-start bb
-add lipid profile
-npo for cath Tuesday
CMY: EF 45%.
-on ACEI, will add bb
-consider MRA
-Kwan out SGLT2i
Gastroenteritis
-Treatment per primary team
Hypertension
-Continue home lisinopril, adding bb
Subjective:
she is finally feeling better and would like to eat.
TTE: 03/15/25:
Mildly reduced left ventricular systolic function. Estimated left ventricular ejection fraction is 45%.
Basal to mid anteroseptal, basal to apical inferoseptal and mid to apical inferior wall hypokinesis.
Stage I diastolic dysfunction suggestive of abnormal relaxation.
No significant valvular disease.
No prior study available for comparison.
Physical Exam
Vital Signs/Labs
Vital Signs
Temp Pulse Resp BP Pulse Ox
98.4 F 79 17 153/81 99
03/15/25 11:18 03/15/25 11:18 03/15/25 11:18 03/15/25 11:18 03/15/25 11:18
03/14/25 03/15/25 03/16/25
06:59 06:59 06:59
Actual Weight 202 lb 6 oz
03/15/25 06:37
03/15/25 06:37
Magnesium 1.6 mg/dl (1.6-2.3) 03/15/25 06:37
LAB Results
03/14/25 03/14/25 03/14/25
14:00 17:54 21:01
Troponin I 0.192 H* 1.040 H* D 1.600 H* D
03/15/25 03/15/25
02:32 07:45
Troponin I 1.670 H* 2.220 H* D
Physical Exam
Constitutional: No acute distress
Cardiovascular: Rhythm & rate is regular, Pedal edema is absent, JVD pressure is normal, Systolic murmur absent and Diastolic murmur absent
Respiratory: Respiratory effort normal, Lungs clear to auscul., Wheeze Absent, Crackles Absent and Rhonchi Absent
Neuro/Psych: AO x 3
Data Reviewed
-
Date of Service: March 15, 2025
Echo: Tracing Personally Visualized and interpreted (echo above)
Labs: Labs Reviewed by me (Trop up to 2.2)
[2025-03-15 14:51] LABS: Troponin I 1.680 ng/ml
[2025-03-15] MEDS: TOPROL XL 25 MG PO ×2 (15:57→20:40)
[2025-03-15] MEDS: HEPARIN 4000 UNITS IV (16:21)
[2025-03-15] MEDS: HEPARIN 25000 UNITS/250 ML IV (16:30)
[2025-03-15 16:45] LABS: APTT 23.5 Sec (23.4-35.0)
--- NOTE | 2025-03-15 21:39 | PTCARENOTE ---
Assumed care on pt at 1900, aaox3, SR on the monitor, HR 80's.BP stable. Denies chest pain or SOB, still c/o RUQ abd pain, tolerated diet well today, no c/o nausea/vomiting or abd pain after eating. Heparin infusing at 1000 unit/hour, LR @ 125ml/hr.
Pt argumentative when notified that [id number] was alejandro q8hr, sart
--- NOTE | 2025-03-15 21:47 | PTCARENOTE ---
Addendum entered by Judith Woodward RN 03/15/25 22:45:
Correction: LR infusing at 100ml/hr.
Original Note:
Assumed care on pt at 1900, aaox3, SR on the monitor, HR 80's. BP stable. Denies chest pain or SOB, still c/o RUQ abd pain, tolerated diet well today, no c/o nausea/vomiting or abd pain after eating. Heparin infusing at 1000 unit/hour, LR @
125ml/hr. Pt argumentative when notified that [id number] was alejandro q8hr, stated that she would call her to bring her Roxicodone from home as she needs it q5hr. Educated pt on hospital's policy regarding home medications and made her aware
again that she had other pain med choices for breakthrough pain. Dilaudid 1mg IV given, pt resting in bed at this time with no further complaints. Call funes within reach.
[2025-03-15] MEDS: LYRICA 100 MG PO (22:40)
[2025-03-15] MEDS: PEPCID 20 MG IV (22:40)
[2025-03-15 23:07] LABS: Hematocrit 34.1 % (37.0-47.0); Hemoglobin 11.6 g/dL (12.0-16.0); Mean Corp Hgb Conc. 34.0 g/dL (33.0-37.0); Mean Corpuscular Volume 87.2 fL (81.0-99.0); Platelet Count 212 10^3/uL (130-400); Red Cell Dist. Width 14.6 % (11.5-14.5)
[2025-03-15 23:18] LABS: APTT 33.3 Sec (23.4-35.0)
[2025-03-16] VITALS (7 sets, daily range): BP systolic 99–115; BP diastolic 51–69; BMI 34.9
[2025-03-16] MEDS: XANAX 0.5 MG PO ×2 (01:30→23:08)
[2025-03-16] MEDS: DILAUDID 1 MG IV (05:03)
[2025-03-16 05:29] LABS: Hematocrit 36.3 % (37.0-47.0); Hemoglobin 11.9 g/dL (12.0-16.0); Mean Corp Hgb Conc. 32.8 g/dL (33.0-37.0); Mean Corpuscular Volume 89.4 fL (81.0-99.0); Nucleated Red Blood Cells % 0 %; Platelet Count 206 10^3/uL (130-400); Red Cell Dist. Width 14.6 % (11.5-14.5)
[2025-03-16 05:43] LABS: APTT 42.6 Sec (23.4-35.0)
[2025-03-16 05:54] LABS: Blood Urea Nitrogen 12 mg/dl (7-17); Calcium 8.7 mg/dl (8.4-10.2); Carbon Dioxide 27 mmol/L (22-30); Chloride 109 mmol/L (98-107); Estimated Creatinine Clearance > 125 ml/min; Glucose 100 mg/dl (70-99); Magnesium 2.0 mg/dl (1.6-2.3); Potassium 4.3 mmol/L (3.5-5.1); Sodium 136 mmol/L (135-145); eGFR > 60.00
[2025-03-16] MEDS: NSS (PRESERVATIVE FREE) 10 ML IV (08:50)
[2025-03-16] MEDS: ROXICODONE 15 MG PO ×3 (08:51→23:07)
[2025-03-16] MEDS: PROTONIX IV 40 MG IV (08:51)
[2025-03-16] MEDS: ZESTRIL 20 MG PO (08:51)
[2025-03-16] MEDS: LOW STRENGTH ASPIRIN 81 MG PO (08:51)
[2025-03-16] MEDS: TOPROL XL PO (09:02)
[2025-03-16] MEDS: WELLBUTRIN XL (24 hour extended release) 150 MG PO (09:02)
[2025-03-16] MEDS: LYRICA 50 MG PO ×3 (09:02→16:57)
[2025-03-16] MEDS: LR 1000 IV (09:56)
--- NOTE | 2025-03-16 10:15 | W.PN.CD ---
Addendum entered and electronically signed by Mauricio Mckeon MD 03/16/25 13:55:
Patient seen and examined in collaboration with CARDIOLOGY TECHNICIAN; agree with below.
- Peak troponin 2.2; now trending down.
- Continue heparin drip.
- Continue aspirin and Toprol-XL.
- Will start atorvastatin.
- Continue bed and breakfast cook.
- Cardiac catheterization planned for Tuesday.
- Will continue to follow.
Addendum entered and electronically signed by ADALID Mccann 03/16/25 10:45:
Physical Exam
Constitutional: No acute distress
Cardiovascular: Rhythm & rate is regular, Pedal edema is absent, JVD pressure is normal, Systolic murmur absent and Diastolic murmur absent
Respiratory: Respiratory effort normal, Lungs clear to auscul., Wheeze Absent, Crackles Absent and Rhonchi Absent
Neuro/Psych: AO x 3
Original Note:
Today's Communication / Plan
-
Continue current medical therapy
Cardiac catheterization Tuesday, future n.p.o. order placed
Impression / Plan
-
I/P: 45-year-old female with a history of hypertension and chronic pain on opioids who presents with nausea, vomiting, and diarrhea starting at 6 AM. Cardiology is consulted for elevated troponin and substernal chest pressure.
Outpatient can marker: will be Dr. Irwin
[place]: Type 2 (viral myocarditis) vs Type I
-THIS IS A HIGH RISK SITUATION THAT IS A THREAT TO LIFE
-With regional wall motion and peak troponin 2.220 will need to treat for ACS (RF: obesity, HTN, h/o preeclampsia, and IFG)
- EKG with nonspecific ST abnormality
-Continue ASA, heparin drip & beta-veda
-Fasting lipid panel in a.m.
-Cardiac catheterization Tuesday, n.p.o. after midnight Tuesday into Tuesday
Cardiomyopathy (LVEF 45%), type unknown
- She does not appear volume overloaded
-GDMT as tolerated:
-CLYDE/ARB/ARNI: Lisinopril 20 mg daily (home dose)
-SGLT2 inhibitor: Case management to kwan
-Aldosterone agonist: Can consider if BP allows
-Beta veda: Metoprolol succinate 25 mg twice daily, this was added yesterday
-Isosorbide/Hydralazine:�Not indicated
-ICD: Not indicated
- Trend Daily weight, I/O
Gastroenteritis, treatment per primary team
Hypertension, chronic and stable, follow with changes to medical therapy in the setting of cardiomyopathy
Prediabetes, HgbA1c 5.7%
Chronic pain with opioid dependence
SUBJECTIVE:
Denies chest pain and shortness of breath.
DATA:
TTE, 03/15/25:
Mildly reduced left ventricular systolic function. Estimated left ventricular ejection fraction is 45%.
Basal to mid anteroseptal, basal to apical inferoseptal and mid to apical inferior wall hypokinesis.
Stage I diastolic dysfunction suggestive of abnormal relaxation.
No significant valvular disease.
No prior study available for comparison.
Physical Exam
Vital Signs/Labs
Vital Signs
Temp Pulse Resp BP Pulse Ox
98.3 F 48 18 105/65 97
03/16/25 08:12 03/16/25 09:02 03/16/25 08:12 03/16/25 04:47 03/16/25 08:12
03/15/25 03/16/25 03/17/25
06:59 06:59 06:59
Actual Weight 91.796 kg
03/16/25 05:11
03/16/25 05:11
APTT 42.6 Sec (23.4-35.0) H 03/16/25 05:11
Magnesium 2.0 mg/dl (1.6-2.3) 03/16/25 05:11
LAB Results
03/14/25 03/14/25 03/14/25
14:00 17:54 21:01
Troponin I 0.192 H* 1.040 H* D 1.600 H* D
03/15/25 03/15/25 03/15/25
02:32 07:45 13:44
Troponin I 1.670 H* 2.220 H* D 1.680 H*
03/15/25
19:30
Troponin I Cancelled
Data Reviewed
-
Date of Service: March 16, 2025
[2025-03-16] MEDS: LIPITOR 40 MG PO (10:36)
[2025-03-16] MEDS: HEPARIN 25000 UNITS/250 ML IV (11:29)
[2025-03-16 13:04] LABS: APTT 50.6 Sec (23.4-35.0)
--- NOTE | 2025-03-16 14:13 | PTCARENOTE ---
Patient comfortable at rest, sleeping easily arouses. SB 40-50's. Eating and drinking well, denies nausea or diarrhea. Heparin gtt per MAR, call funes in reach
[2025-03-16] MEDS: LR IV (17:04)
--- NOTE | 2025-03-16 17:39 | W.PN.HOSP.TC ---
Today's Communication/Plan
-
Continue Heparin Drip
See plan
Assessment / Plan
Assessment / Plan
Physical Exam
General: Not in acute distress, having periods of pain
HEENT: Normocephalic
Respiratory: Clear to Auscultation Bilaterally
Cardiac: S1/S2 and Regular Rhythm
GI: Soft and Other (mid-epigastric tenderness and left upper quadrant tenderness, no rebound or guarding)
Musculoskeletal: No Edema
Skin: Warm and Dry
Neuro: AAO x 3
Psych: Calm
Assessment/Plan
Ms. Aury Hayward is a 45 yo woman with hx anxiety/depression, chronic pain on opiates and essential hypertension who presented to the emergency room with sudden epigastric pain followed by vomiting (multiple episodes) and diarrhea (not dark black
or bloody). No fever, + chills. No chest pain or shortness of breath. No LE swelling. No rash. She cannot remember eating anything out of the ordinary. No sick contacts. She does not smoke cannabis.
Triage VS: T 37.1C, P 60, RR 18, BP 151/112, SpO2 100%
LABS: WBC 11.4, HG 13.6, PLT 267, Na 138, K+ 4.1, Cl 106, CO2 24, BUN 14, Cr 0.6, Glucose 162, T. Bili 0.6, AST 26, ALT 25, Trop 0.192, Lipase 17, HCG neg
EKG: sinus bradycardia @ 49 with sinus arrhythmia
CXR
IMPRESSION:
Unremarkable chest
CT A/P
IMPRESSION:
1. There is no CTA evidence of aortic dissection
2. There is a 2.8 cm cyst in the left adnexa
MAR: IV Dilaudid, Morphine, 1L IVF, IV Zofran, IV Protonix
Nausea/Vomiting/Diarrhea - RESOLVED
Gastroenteritis
Leukocytosis - RESOLVED
-Possible viral syndrome vs. manifestations of a possible underlying ACS
-CT A/P without e/o aortic dissection or acute disease, I communicated on 03/15/25 with radiologist Taj Marley and he said that the CT from 03/14/25 showed: there�s no central or segmental PE but the distal pulmonary
arteries are not well opacified
-continue support care with IVF, IV Compazine PRN, IV Dilaudid PRN
-IV Protonix/Pepcid for possible gastritis contributing to pain
RUQ uneasiness feeling after eating and drinking
- RUQ ultrasound and CT imaging were unrevealing
- Monitor CMP
Worsening Leukocytosis
New Fever
Viral Syndrome
-No cough, fever, signs or symptoms of UTI or back pain or any clear source of infection other than the possible gastroenteritis
-Blood cultures with no growth so far
-COVID and Flu both negative
-MRSA pending
-Gastrointestinal source? as above
Hypokalemia - RESOLVED
-Could be from patient's GI symptoms
-Replace
-Magnesium okay
-Monitor BMP
Concern for Acute Coronary Syndrome
Chest Pain
Troponin Elevation
-Continue Heparin Drip
-Continue Beta Fabienne
-Discussed on 03/15/25 with cardiology, with elevated troponins and risk factors of obesity, hypertension, history of preeclampsia and impaired fasting glucose, we will need to treat as acute coronary syndrome unless proven
otherwise
-Cardiac cath on Tuesday March 18, 2025
-Hopeful it is all myopericarditis (from a possible Viral Syndrome given patient's GI symptoms)
-Consulted cardiology
-Continue to monitor in IVU
Chronic Pain, Opiate Dependence
-MANAGER HOME oxycodone -- reduced frequency to avoid drowsiness; IV Dilaudid if cannot tolerate PO
-MANAGER HOME Pregabalin
Anxiety/Depression
-MANAGER HOME Wellbutrin
-MANAGER HOME Xanax PRN (IV ativan if cannot tolerate PO)
Essential HTN
-hold MANAGER HOME Lisinopril for now
Hyperglycemia
-in setting of acute illness
-A1c is 5.7
2.8 cm cyst in the left adnexa on hospital imaging
DVT Prophylaxis: Lovenox subQ
Code Status: FULL CODE
Anticipated Discharge: > 48 hours
Subjective/Interval History
-
Date of Service: March 16, 2025
Patient was seen and examined. She reported her chest pain is gone, she reported uneasy feeling on her right upper quadrant when eating/drinking.
Objective Data
-
Labs:
Laboratory Results
03/16/25 03/16/25 03/16/25
05:11 12:35 19:25
APTT 42.6 H 50.6 H Pending
Sodium 136
Potassium 4.3 D
Chloride 109 H
Carbon Dioxide 27
BUN 12
Creatinine 0.6
Glucose 100 H
Calcium 8.7
Vital Signs:
Vital Signs
Temp Pulse Resp BP Pulse Ox
98.0 F 54 16 99/59 98
03/16/25 15:33 03/16/25 16:15 03/16/25 15:33 03/16/25 15:36 03/16/25 15:33
I&O
03/15/25 03/16/25 03/17/25
06:59 06:59 06:59
Intake Total 1480 / 1480 2280 / 2280
Balance 1480 / 1480 2280 / 2280
[2025-03-16 20:08] LABS: APTT 62.3 Sec (23.4-35.0)
[2025-03-16] MEDS: TOPROL XL 25 MG PO (20:41)
[2025-03-16] MEDS: LYRICA 100 MG PO (20:42)
[2025-03-16] MEDS: PEPCID 20 MG IV (20:42)
--- NOTE | 2025-03-16 21:01 | PTCARENOTE ---
Assumed care of the pt at 1900.Pt is AAOx3 SR on the monitor denies cp Heparin gtt infusing and titrating per protocol. VSS Pt ambulating to bathroom and in hallway. Call funes within reach.
[2025-03-17] VITALS (7 sets, daily range): BP systolic 104–129; BP diastolic 44–78; BMI 34.7
[2025-03-17] MEDS: DILAUDID 1 MG IV (03:17)
[2025-03-17] MEDS: HEPARIN 25000 UNITS/250 ML IV ×2 (03:23→21:36)
[2025-03-17 03:39] LABS: Hematocrit 32.1 % (37.0-47.0); Hemoglobin 10.5 g/dL (12.0-16.0); Mean Corp Hgb Conc. 32.7 g/dL (33.0-37.0); Mean Corpuscular Volume 88.9 fL (81.0-99.0); Nucleated Red Blood Cells % 0 %; Platelet Count 172 10^3/uL (130-400); Red Cell Dist. Width 14.6 % (11.5-14.5)
[2025-03-17 03:51] LABS: APTT 87.4 Sec (23.4-35.0)
[2025-03-17 04:05] LABS: ALT (SGPT) 43 U/L (0-35); AST (SGOT) 36 U/L (14-36); Albumin 3.1 g/dl (3.5-5.0); Alkaline Phosphatase 41 U/L (38-126); Blood Urea Nitrogen 12 mg/dl (7-17); Calcium 8.7 mg/dl (8.4-10.2); Carbon Dioxide 27 mmol/L (22-30); Chloride 109 mmol/L (98-107); Estimated Creatinine Clearance 115 ml/min; Glucose 100 mg/dl (70-99); HDL Cholesterol 45 mg/dl; LDL Cholesterol, Calculated 71 mg/dl; Magnesium 1.8 mg/dl (1.6-2.3); Potassium 4.3 mmol/L (3.5-5.1); Sodium 139 mmol/L (135-145); Total Protein 5.4 g/dl (6.3-8.2); Very Low Density Lipoprotein 23 mg/dl (0-30); eGFR > 60.00
--- NOTE | 2025-03-17 05:56 | PTCARENOTE ---
At 0305 Pt c/o severe back pain requested a dose of Dilaudid ivp. Chicho well resting
[2025-03-17] MEDS: LOW STRENGTH ASPIRIN 81 MG PO (08:58)
[2025-03-17] MEDS: ROXICODONE 15 MG PO ×3 (08:58→23:05)
[2025-03-17] MEDS: ZESTRIL 20 MG PO (08:58)
[2025-03-17] MEDS: WELLBUTRIN XL (24 hour extended release) 150 MG PO (08:58)
[2025-03-17] MEDS: TOPROL XL 25 MG PO ×2 (09:00→20:23)
[2025-03-17] MEDS: NSS (PRESERVATIVE FREE) 10 ML IV (09:00)
[2025-03-17] MEDS: PROTONIX IV 40 MG IV (09:01)
[2025-03-17] MEDS: LYRICA PO ×3 (09:01→16:36)
[2025-03-17 09:54] LABS: APTT 82.2 Sec (23.4-35.0)
--- NOTE | 2025-03-17 12:15 | W.PN.CD ---
Today's Communication / Plan
-
- Continue heparin drip.
- Cardiac catheterization tomorrow.
- NPO after midnight.
Impression / Plan
-
I/P: 45-year-old female with a history of hypertension and chronic pain on opioids who presents with nausea, vomiting, and diarrhea starting at 6 AM. Cardiology is consulted for elevated troponin and substernal chest pressure.
Outpatient professional shopper: will be Dr. Irwin
OK: Type 2 (viral myocarditis) vs Type I
- THIS IS A HIGH RISK SITUATION THAT IS A THREAT TO LIFE
- With regional wall motion and peak troponin 2.220 will need to treat for ACS (RF: obesity, HTN, h/o preeclampsia, and IFG)
- EKG with nonspecific ST abnormality
- Continue ASA and beta-veda.
- Continue heparin drip.
- Cardiac catheterization tomorrow.
- NPO after midnight.
Cardiomyopathy (LVEF 45%), type unknown
- She does not appear volume overloaded
-GDMT as tolerated:
-CLYDE/ARB/ARNI: Lisinopril 20 mg daily (home dose)
-SGLT2 inhibitor: Case management to kwan
-Aldosterone agonist: Can consider if BP allows
-Beta veda: Continue metoprolol succinate 25 mg twice daily--can change to 50 mg once daily on discharge.
-Isosorbide/Hydralazine:�Not indicated
-ICD: Not indicated
- Trend Daily weight, I/O
Gastroenteritis, treatment per primary team
Hypertension, chronic and stable, follow with changes to medical therapy in the setting of cardiomyopathy
Prediabetes, HgbA1c 5.7%--weight loss and regular exercise recommended.
Chronic pain with opioid dependence
SUBJECTIVE:
No major events overnight. No cardiac complaints this a.m.
DATA:
TTE, 03/15/25:
Mildly reduced left ventricular systolic function. Estimated left ventricular ejection fraction is 45%.
Basal to mid anteroseptal, basal to apical inferoseptal and mid to apical inferior wall hypokinesis.
Stage I diastolic dysfunction suggestive of abnormal relaxation.
No significant valvular disease.
No prior study available for comparison.
Physical Exam
Vital Signs/Labs
Vital Signs
Temp Pulse Resp BP Pulse Ox
98.3 F 59 20 104/49 98
03/17/25 11:43 03/17/25 05:45 03/17/25 11:43 03/17/25 03:05 03/17/25 11:43
03/16/25 03/17/25 03/18/25
06:59 06:59 06:59
Actual Weight 94.7 kg
03/17/25 03:14
03/17/25 03:14
APTT 82.2 Sec (23.4-35.0) H 03/17/25 09:31
Magnesium 1.8 mg/dl (1.6-2.3) 03/17/25 03:14
Triglycerides 119 mg/dl (10-149) 03/17/25 03:14
LDL Cholesterol, Calc 71 mg/dl 03/17/25 03:14
VLDL Cholesterol, Calc 23 mg/dl (0-30) 03/17/25 03:14
HDL Cholesterol 45 mg/dl 03/17/25 03:14
LAB Results
03/14/25 03/14/25 03/14/25
14:00 17:54 21:01
Troponin I 0.192 H* 1.040 H* D 1.600 H* D
03/15/25 03/15/25 03/15/25
02:32 07:45 13:44
Troponin I 1.670 H* 2.220 H* D 1.680 H*
03/15/25
19:30
Troponin I Cancelled
Physical Exam
Constitutional: No acute distress and Comfortable
EENT: Anicteric
Cardiovascular: Rhythm & rate is regular, Pedal edema is absent, Systolic murmur absent and S1S2 is normal
Respiratory: Respiratory effort normal and Lungs clear to auscul.
GI: Soft and Non tender
Neuro/Psych: AO x 3
Other: Skin (Warm, dry, intact)
Data Reviewed
-
Date of Service: March 17, 2025
EKG: Tracing Personally Visualized and interpreted (Telemetry: Sinus rhythm)
Echo: Report Reviewed by me (EF 45%)
Medical Tests (PFT, Pathology etc): Discussed with Nurse and Discussed with Patient
Labs: Labs Reviewed by me
--- NOTE | 2025-03-17 14:08 | W.PN.HOSP.TC ---
Today's Communication/Plan
-
NPO after midnight for cardiac cath tomorrow
Continue Heparin Drip
Continue to monitor in IVU
Assessment / Plan
Assessment / Plan
Physical Exam
General: Not in acute distress, having periods of pain
HEENT: Normocephalic
Respiratory: Clear to Auscultation Bilaterally
Cardiac: S1/S2 and Regular Rhythm
GI: Soft and Other (mid-epigastric tenderness and left upper quadrant tenderness, no rebound or guarding)
Musculoskeletal: No Edema
Skin: Warm and Dry
Neuro: AAO x 3
Psych: Calm
Assessment/Plan
45 y/o woman with history anxiety/depression, chronic pain on opiates and essential hypertension who presented to the emergency room with sudden epigastric pain followed by vomiting (multiple episodes) and diarrhea (not dark black or bloody). No
fever, + chills. No chest pain or shortness of breath. No LE swelling. No rash. She cannot remember eating anything out of the ordinary. No sick contacts. She does not smoke cannabis.
Triage VS: T 37.1C, P 60, RR 18, BP 151/112, SpO2 100%
LABS: WBC 11.4, HG 13.6, PLT 267, Na 138, K+ 4.1, Cl 106, CO2 24, BUN 14, Cr 0.6, Glucose 162, T. Bili 0.6, AST 26, ALT 25, Trop 0.192, Lipase 17, HCG neg
EKG: sinus bradycardia @ 49 with sinus arrhythmia
CXR
IMPRESSION:
Unremarkable chest
CT A/P
IMPRESSION:
1. There is no CTA evidence of aortic dissection
2. There is a 2.8 cm cyst in the left adnexa
MAR: IV Dilaudid, Morphine, 1L IVF, IV Zofran, IV Protonix
Nausea/Vomiting/Diarrhea - RESOLVED
Gastroenteritis
Leukocytosis - RESOLVED
-Possible viral syndrome versus manifestations of a possible underlying ACS
-CT A/P without e/o aortic dissection or acute disease, I communicated on 03/15/25 with radiologist Taj Marley and he said that the CT from 03/14/25 showed: there�s no central or segmental PE but the distal pulmonary
arteries are not well opacified
-Continue support care with IVF, IV Compazine PRN, IV Dilaudid PRN
-IV Protonix/Pepcid for possible gastritis contributing to pain
RUQ uneasiness feeling after eating and drinking
-RUQ ultrasound and CT imaging were unrevealing
-Monitor CMP -- stable
Leukocytosis - RESOLVED
Fever 100.5 F -- last fever was on March 15, 2025
Viral Syndrome - RESOLVED
-No cough, fever, signs or symptoms of UTI or back pain or any clear source of infection other than the possible gastroenteritis
-Blood cultures with no growth so far
-COVID and Flu both negative
-MRSA negative
-Gastrointestinal source? as above
Hypokalemia - RESOLVED
-Could be from patient's GI symptoms
-Replace
-Magnesium okay
-Monitor BMP
Concern for Acute Coronary Syndrome
Chest Pain
Troponin Elevation
-Continue Heparin Drip
-Continue Beta Fabienne
-Discussed on 03/15/25 with cardiology, with elevated troponins and risk factors of obesity, hypertension, history of preeclampsia and impaired fasting glucose, we will need to treat as acute coronary syndrome unless proven
otherwise
-Cardiac cath on Tuesday March 18, 2025
-Hopeful it is all myopericarditis (from a possible Viral Syndrome given patient's GI symptoms)
-Consulted cardiology
-Continue to monitor in IVU
Chronic Pain, Opiate Dependence
-HIV PREVENTION SPECIALIST oxycodone -- reduced frequency to avoid drowsiness; IV Dilaudid if cannot tolerate PO
-HIV PREVENTION SPECIALIST Pregabalin
Anxiety/Depression
-HIV PREVENTION SPECIALIST Wellbutrin
-HIV PREVENTION SPECIALIST Xanax PRN (IV ativan if cannot tolerate PO)
Essential HTN
-hold HIV PREVENTION SPECIALIST Lisinopril for now
Hyperglycemia
-in setting of acute illness
-A1c is 5.7
2.8 cm cyst in the left adnexa on hospital imaging
DVT Prophylaxis: Heparin Drip
Code Status: FULL CODE
Anticipated Discharge: 24 - 48 hours
Subjective/Interval History
-
Date of Service: March 17, 2025
Patient was seen and examined. She reported her abdominal uneasiness and chest discomfort have completely resolved.
Objective Data
-
Labs:
Laboratory Results
03/17/25 03/17/25
03:14 09:31
WBC 7.6
Hgb 10.5 L
Hct 32.1 L
Plt Count 172
APTT 87.4 H 82.2 H
Sodium 139
Potassium 4.3
Chloride 109 H
Carbon Dioxide 27
BUN 12
Creatinine 0.7
Glucose 100 H
Calcium 8.7
Total Bilirubin 0.3
AST 36
ALT 43 H
Alkaline Phosphatase 41
Vital Signs:
Vital Signs
Temp Pulse Resp BP Pulse Ox
98.3 F 65 20 106/70 97
03/17/25 11:43 03/17/25 12:15 03/17/25 11:43 03/17/25 11:43 03/17/25 11:43
I&O
03/16/25 03/17/25 03/18/25
06:59 06:59 06:59
Intake Total 2280 / 2280
Balance 2280 / 2280
--- NOTE | 2025-03-17 15:20 | PTCARENOTE ---
03/17/25 Received patient in bed on tooth polisher-NSR. Pt on room air @96-98%. IV Heparin infusing at 18 ml/hr (1800 units/hr). PTT therapeutic at 82.2. Will recheck in AM. Pt denies any chest pain, palpitations or shortness of breath. VSS. Pt is
walking in hallway. Pt is NPO after MN for Cardiac cath in AM.
[2025-03-17] MEDS: LIPITOR 40 MG PO (17:10)
--- NOTE | 2025-03-17 18:33 | PTCARENOTE ---
03/17/251826 Patient just had a 8 beat V tach- felt a little fluttering, no shortness of breath, on room air 98%, BP 128/78, HR 67. She is for cath in AM, Cardiology made aware, no further orders at this time. Pt remains on cardiac cath lab radiology technologist.
--- NOTE | 2025-03-17 21:20 | PTCARENOTE ---
Assumed care of the pt @ 1900.Pt is AAOx3 ambulating in room and in hallway. Denies CP Heparin gtt @ 1800 units/HR. family at bedside. Pt will be NPO after mn for cath. Call funes within reach.
[2025-03-17] MEDS: PEPCID 20 MG IV (21:49)
[2025-03-17] MEDS: XANAX 0.5 MG PO (21:49)
[2025-03-17] MEDS: LYRICA 100 MG PO (21:49)
[2025-03-18] VITALS (11 sets, daily range): BP systolic 116–156; BP diastolic 56–86; BMI 34.7
[2025-03-18] MEDS: DILAUDID 1 MG IV (02:12)
[2025-03-18 02:57] LABS: Hematocrit 32.4 % (37.0-47.0); Hemoglobin 10.8 g/dL (12.0-16.0); Mean Corp Hgb Conc. 33.3 g/dL (33.0-37.0); Mean Corpuscular Volume 90.3 fL (81.0-99.0); Nucleated Red Blood Cells % 0 %; Platelet Count 173 10^3/uL (130-400); Red Cell Dist. Width 14.2 % (11.5-14.5)
[2025-03-18 03:07] LABS: APTT 78.9 Sec (23.4-35.0)
[2025-03-18 03:18] LABS: ALT (SGPT) 50 U/L (0-35); AST (SGOT) 30 U/L (14-36); Albumin 3.4 g/dl (3.5-5.0); Alkaline Phosphatase 50 U/L (38-126); Blood Urea Nitrogen 11 mg/dl (7-17); Calcium 9.0 mg/dl (8.4-10.2); Carbon Dioxide 27 mmol/L (22-30); Chloride 106 mmol/L (98-107); Estimated Creatinine Clearance > 125 ml/min; Glucose 104 mg/dl (70-99); Magnesium 1.8 mg/dl (1.6-2.3); Potassium 4.2 mmol/L (3.5-5.1); Sodium 138 mmol/L (135-145); Total Protein 5.8 g/dl (6.3-8.2); eGFR > 60.00
--- NOTE | 2025-03-18 07:42 | W.PN.HOSP.TC ---
Today's Communication/Plan
-
see a/p
Assessment / Plan
Assessment / Plan
Physical Exam
General: Not in acute distress, having periods of pain
HEENT: Normocephalic
Respiratory: Clear to Auscultation Bilaterally
Cardiac: S1/S2 and Regular Rhythm
GI: Soft mid-epigastric tenderness and left upper quadrant tenderness, no rebound or guarding
Musculoskeletal: No Edema
Skin: Warm and Dry
Neuro: AO x 3
Psych: Calm
Assessment/Plan
45F hx anxiety/depression, chronic pain on opiates, HTN who presented to the emergency room with sudden epigastric pain followed by vomiting (multiple episodes) and diarrhea (not dark black or bloody). No fever, + chills. No chest pain or shortness
of breath. No LE swelling. No rash. She cannot remember eating anything out of the ordinary. No sick contacts. She does not smoke cannabis.
CXR
IMPRESSION:
Unremarkable chest
CT A/P
IMPRESSION:
1. There is no CTA evidence of aortic dissection
2. There is a 2.8 cm cyst in the left adnexa
MAR: IV Dilaudid, Morphine, 1L IVF, IV Zofran, IV Protonix
Nausea/Vomiting/Diarrhea - RESOLVED
Gastroenteritis
Leukocytosis - RESOLVED
-Possible viral syndrome versus manifestations of a possible underlying ACS
-CT A/P without e/o aortic dissection or acute disease, I communicated on 03/15/25 with radiologist Taj Marley and he said that the CT from 03/14/25 showed: there�s no central or segmental PE but the distal pulmonary
arteries are not well opacified
-Continue support care with IVF, IV Compazine PRN, IV Dilaudid PRN
-IV Protonix/Pepcid for possible gastritis contributing to pain, completed with resolution of symptom
RUQ uneasiness feeling after eating and drinking
-RUQ ultrasound and CT imaging were unrevealing
-Monitor CMP -- stable
-symptoms since resolved
Leukocytosis - RESOLVED
Fever 100.5 F -- last fever was on March 15, 2025
Viral Syndrome - RESOLVED
-No cough, fever, signs or symptoms of UTI or back pain or any clear source of infection other than the possible gastroenteritis
-Blood cultures with no growth so far
COVID and Flu both negative
-MRSA negative
Hypokalemia
Monitor and replete as necessary
Concern for Acute Coronary Syndrome
Chest Pain
Troponin Elevation
-Continue Beta Fabienne
-Cardiac cath Tuesday March 18, 2025 appreciated no CAD, Severely elevated filling pressures and signs consistent with focal myocarditis.
-Cardiology consult appreciated hep gtt completed, Lasix diuresis started
-Continue to monitor in IVU
Chronic Pain, Opiate Dependence
-SKEIN DYER oxycodone ; IV Dilaudid if cannot tolerate PO
-SKEIN DYER Pregabalin
Anxiety/Depression
-SKEIN DYER Wellbutrin
-SKEIN DYER Xanax PRN (IV ativan if cannot tolerate PO)
Essential HTN
-Lisinopril, Lasix, Metoprolol
Mild Hyperglycemia not significant
-A1c 5.7 prediabetes
2.8 cm cyst in the left adnexa on hospital imaging
DVT Prophylaxis: Encourage ambulation
Code Status: FULL CODE
I spent a total of 47 minutes with the patient or on the floor. More than 50% of this time involved counseling and coordination of care.
Anticipated Discharge: 24 - 48 hours
Subjective/Interval History
-
Date of Service: March 18, 2025
No acute distress, appears comfortable, ambulatory without need for assist device. Denies SOB chest pain palpitations.
Objective Data
-
Labs:
Laboratory Results
03/18/25
02:29
WBC 7.7
Hgb 10.8 L
Hct 32.4 L
Plt Count 173
APTT 78.9 H
Sodium 138
Potassium 4.2
Chloride 106
Carbon Dioxide 27
BUN 11
Creatinine 0.6
Glucose 104 H
Calcium 9.0
Total Bilirubin 0.3
AST 30
ALT 50 H
Alkaline Phosphatase 50
Vital Signs:
Vital Signs
Temp Pulse Resp BP Pulse Ox
98.5 F 52 16 127/68 97
03/18/25 02:20 03/18/25 02:20 03/18/25 02:20 03/18/25 02:20 03/18/25 02:20
[2025-03-18] MEDS: NSS (PRESERVATIVE FREE) 10 ML IV (08:23)
[2025-03-18] MEDS: PROTONIX IV 40 MG IV (08:23)
[2025-03-18] MEDS: ZESTRIL 20 MG PO (08:23)
[2025-03-18] MEDS: TOPROL XL 25 MG PO ×2 (08:24→20:06)
[2025-03-18] MEDS: WELLBUTRIN XL (24 hour extended release) 150 MG PO (08:24)
[2025-03-18] MEDS: LOW STRENGTH ASPIRIN 81 MG PO (08:24)
[2025-03-18] MEDS: ROXICODONE 15 MG PO ×4 (08:24→23:33)
[2025-03-18] MEDS: LYRICA PO ×3 (08:27→20:03)
--- NOTE | 2025-03-18 09:29 | W.PN.CD ---
Today's Communication / Plan
-
Cardiac catheterization to clarify coronary anatomy.
Adjust medications based on cath findings.
Impression / Plan
-
Impression/Plan: 45-year-old female with a history of hypertension and chronic pain on opioids who presents with nausea, vomiting, and diarrhea starting at 6 AM. Cardiology is consulted for elevated troponin and substernal chest pressure.
Outpatient drying supervisor: will be Dr. Irwin
#Troponin elevation
-THIS IS A HIGH RISK SITUATION THAT IS A THREAT TO LIFE.
-Concerning for IN (Type 2 (viral myocarditis) vs Type I).
-Nonspecific ST abnormality + Regional wall motion + peak troponin 2.220 is concerning for IN (Type 2 (viral myocarditis) vs Type I).
-Treat for ACS (RF: obesity, HTN, h/o preeclampsia, and IFG).
-Cardiac catheterization for clarification of coronary anatomy.
-Continue aspirin, atorvastatin, metoprolol succinate.
#Cardiomyopathy (LVEF 45%), type unknown
-She does not appear volume overloaded.
-GDMT as tolerated:
-Furosemide: Not currently indicated. We will assess LVEDP during cath.
-CLYDE/ARB/ARNI: Lisinopril 20 mg daily (home dose).
-SGLT2 inhibitor: Case management to kwan.
-Aldosterone agonist: Can consider if BP allows.
-Beta veda: Continue metoprolol succinate 25 mg twice daily--can change to 50 mg once daily on discharge.
-Isosorbide/Hydralazine: Not currently indicated.
-ICD: Not currently indicated.
- Trend Daily weight, I/O.
#Hypertension
-Chronic and stable.
-Follow with changes to medical therapy in the setting of cardiomyopathy.
#Gastroenteritis, treatment per primary team.
#Prediabetes, HgbA1c 5.7%--weight loss and regular exercise recommended.
#Chronic pain with opioid dependence
Subjective/Interval History:
NSVT x 8 beats.
Weight stable.
She is very nervous.
Normocytic anemia noted.
DATA:
TTE, 03/15/25:
Mildly reduced left ventricular systolic function. Estimated left ventricular ejection fraction is 45%.
Basal to mid anteroseptal, basal to apical inferoseptal and mid to apical inferior wall hypokinesis.
Stage I diastolic dysfunction suggestive of abnormal relaxation.
No significant valvular disease.
No prior study available for comparison.
Abd US, 03/15/2025:
IMPRESSION:
There is no sonographic evidence of cholelithiasis, acute cholecystitis or biliary duct dilation.
CTA, 03/14/2025:
IMPRESSION:
1. There is no CTA evidence of aortic dissection
2. There is a 2.8 cm cyst in the left adnexa
Physical Exam
Vital Signs/Labs
Vital Signs
Temp Pulse Resp BP Pulse Ox
36.8 C 72 20 156/84 99
03/18/25 08:20 03/18/25 08:30 03/18/25 08:20 03/18/25 08:20 03/18/25 08:20
03/16/25 03/17/25 03/18/25
11:59 11:59 11:59
Actual Weight 95.2 kg 94.7 kg 94.5 kg
03/18/25 02:29
03/18/25 02:29
APTT 78.9 Sec (23.4-35.0) H 03/18/25 02:29
Magnesium 1.8 mg/dl (1.6-2.3) 03/18/25 02:29
Triglycerides 119 mg/dl (10-149) 03/17/25 03:14
LDL Cholesterol, Calc 71 mg/dl 03/17/25 03:14
VLDL Cholesterol, Calc 23 mg/dl (0-30) 03/17/25 03:14
HDL Cholesterol 45 mg/dl 03/17/25 03:14
LAB Results
03/15/25 03/15/25
13:44 19:30
Troponin I 1.680 H* Cancelled
Physical Exam
Constitutional: No acute distress and Comfortable
EENT: Anicteric and Moist mucous membranes
Cardiovascular: Rhythm & rate is regular, Pedal edema is absent, JVD pressure is normal, S1S2 is normal and Murmur/rub/gallop absent
Respiratory: Respiratory effort normal, Lungs clear to auscul., Wheeze Absent, Crackles Absent and Rhonchi Absent
GI: Soft, Distention absent, Flat, Non tender and Normal bowel sounds
Neuro/Psych: AO x 3
Data Reviewed
-
Date of Service: March 18, 2025
Medical Decision Making: Reviewed Test Results, Independent Historian Assessment and Test Interpretation
EKG: Tracing Personally Visualized and interpreted and Report Reviewed by me
Echo: Tracing Personally Visualized and interpreted and Report Reviewed by me
X-Ray/CT/US/MRI/NUC/PET: Image Personally Visualized and interpreted and Report Reviewed by me
Labs: Labs Reviewed by me
--- NOTE | 2025-03-18 10:36 | ITS.CL.CATH ---
Rewinder Operator Helper - Catheterization
Cardiac Catheterization
Procedure Report:
CARDIAC CATHETERIZATION REPORT
Date of Procedure: 03/18/2025
Referring: Mauricio Mckeon M.D.
INDICATION: Non-ST elevation myocardial infarction.
PROCEDURE:
1. Left heart catheterization.
2. Coronary angiography.
3. Left ventriculography.
A total of 32 minutes of procedural/moderate sedation was utilized. An independent bilingual medical assistant was present to assist with and help manage the patient's level of consciousness and physiologic status.
ACCESS:
1. 6 Taiwanese right right artery using a modified Seldinger technique under ultrasound guidance.
CATHETERS:
1. 5 Taiwanese JR4.
2. 5 Taiwanese JL 3.5.
3. 5 Taiwanese angled pigtail.
HEMODYNAMIC DATA
Weight (kg): 94.5
AO (s/d/x, mmHg): 152/90/115
LV (s/x mmHg): 156/26 (A wave to 44)
LEFT VENTRICULOGRAPHY: Performed in an THAO projection. Normal left ventricular size with low normal systolic function. There is a focal area of hypokinesis in the mid inferior wall. Left ventricular ejection fraction is 50%. There is no mitral
valve regurgitation. There is no aortic valve insufficiency. The aortic root, ascending aorta and visualized arch and descending aorta appear normal.
CORONARY ANGIOGRAPHY
Dominance: Right.
Left Main: Normal size, bifurcating vessel. There is no coronary artery disease.
LAD: Normal size vessel giving rise to 2 diagonals. There is no coronary artery disease. The distal LAD is severely tortuous.
Ramus: Congenitally absent.
Circumflex: Large size, nondominant vessel giving rise to 3 obtuse marginals. OM1 arises very high off of the circumflex. OM 2 and OM 3 are relatively small vessels supplying the basal inferolateral wall.
RCA: Normal size, dominant vessel with an anterior origin that is difficult to cannulate. Angiography is nonselective. There is no coronary artery disease.
INTERVENTION(S)
None.
Closure Device: Vascular band.
Radiation (mGy): 413.66
DAP (cm2.Gy): 27.0714
Fluoroscopy time (minutes): 3.5
CONCLUSIONS
1. Right dominant circulation with a difficult to cannulate right coronary artery but no coronary artery disease.
2. Systemic hypertension.
3. Severely elevated filling pressures (LVEDP = 26 mmHg at 94.5 kg) with evidence of diastolic dysfunction (A wave to 44 mmHg).
4. Low normal left ventricular systolic function (LV EF = 50%) with focal hypokinesis of the mid inferior wall without corresponding coronary lesion, consistent with focal myocarditis.
RECOMMENDATIONS:
1. Expectant management after cardiac catheterization via right radial approach.
2. Limited weight bearing on the right wrist for one week.
3. Start furosemide 40 mg IV given severely elevated filling pressures.
4. Blood pressure control will be paramount.
5. OMT/GDMT as hemodynamics will tolerate (including SGLT2i).
Copy to: Mauricio Mckeon M.D., Cathy Walsh PA-C
Drew Hightower DO, FACC, FACP
--- NOTE | 2025-03-18 11:00 | PTCARENOTE ---
Received pt from laborer chemical processing, VSS, monitor showing NSR. Right radial band intact, no bleeding, no hematoma noted. Instructed pt on activity restrictions regarding access site, pt verbalizes understanding. Ambulated to bathroom with assistance.
Family at bedside, call funes in reach.
--- NOTE | 2025-03-18 11:53 | CM ---
Reviewed chart. Met with Ms. Hayward to review discharge plans. She states prior to admission she resides with her spouse and daughter in a one stroy home with one step to enter. She states she also has a ramp to get into the house. She states prior
to admission she was independent with ambulation and adls. She states she does not have any DME in the home. She states she has a prescription plan and uses [facility]. Telephone call to [employer], ([phone]) to check on co-pays for
Farxiga and Jardiance. Both Farxiga and Jardiance will need a prior auth. The prior auth. phone number is ([phone] option 2) She can uses the free one month coupon while waiting for the prior auth. Placed the coupon in her red discharge
folder. Medial work-up in progress. The discharge plan is return home with her spouse and daughter when medically stable.
[2025-03-18] MEDS: LASIX 40 MG IV (15:59)
[2025-03-18] MEDS: LIPITOR PO (19:11)
[2025-03-18] MEDS: LYRICA 100 MG PO (23:33)
[2025-03-18] MEDS: PEPCID IV (23:34)
--- NOTE | 2025-03-18 23:44 | PTCARENOTE ---
Received patient at change of shift. SR on the monitor, HR in the 80s. R radial dressing CDI. Discussed plan of care for cardiac MRI tomorrow, pt verbalizes understanding. 20:00 medications administered at 23:30 as per pt request. Pt refused Pepcid,
education provided. No complaints from pt at this time, call funes within reach.
[2025-03-19 04:22] VITALS: BP 126/68
[2025-03-19 04:38] VITALS: BMI 33.1
[2025-03-19 05:30] LABS: Hematocrit 37.4 % (37.0-47.0); Hemoglobin 12.8 g/dL (12.0-16.0); Mean Corp Hgb Conc. 34.2 g/dL (33.0-37.0); Mean Corpuscular Volume 85.4 fL (81.0-99.0); Nucleated Red Blood Cells % 0 %; Red Cell Dist. Width 14.2 % (11.5-14.5)
[2025-03-19 05:48] LABS: Blood Urea Nitrogen 15 mg/dl (7-17); Calcium 9.8 mg/dl (8.4-10.2); Carbon Dioxide 28 mmol/L (22-30); Chloride 101 mmol/L (98-107); Estimated Creatinine Clearance 111 ml/min; Glucose 101 mg/dl (70-99); Magnesium 2.0 mg/dl (1.6-2.3); Potassium 4.5 mmol/L (3.5-5.1); Sodium 138 mmol/L (135-145); eGFR > 60.00
[2025-03-19 06:40] LABS: Platelet Count 175 10^3/uL (130-400)
[2025-03-19 07:57] VITALS: BP 100/52
[2025-03-19] MEDS: ROXICODONE 15 MG PO ×3 (08:05→15:10)
--- NOTE | 2025-03-19 09:47 | W.PN.CD ---
Addendum entered and electronically signed by Boom Ayala MD 03/19/25 14:24:
I saw and examined the patient.
The AUDIT REVIEWER's note was reviewed and I agree with the note.
Comment: CP improved. She cannot proceed with MRI. Will plan med rx and echo in about 3 months. NO HI THIS IS presumed MYOCARDITIS with heart failure
Cath results 03/18/2025:
CONCLUSIONS
1. Right dominant circulation with a difficult to cannulate right coronary artery but no coronary artery disease.
2. Systemic hypertension.
3. Severely elevated filling pressures (LVEDP = 26 mmHg at 94.5 kg) with evidence of diastolic dysfunction (A wave to 44 mmHg).
4. Low normal left ventricular systolic function (LV EF = 50%) with focal hypokinesis of the mid inferior wall without corresponding coronary lesion, consistent with focal myocarditis.
RECOMMENDATIONS:
1. Expectant management after cardiac catheterization via right radial approach.
2. Limited weight bearing on the right wrist for one week.
3. Start furosemide 40 mg IV given severely elevated filling pressures.
4. Blood pressure control will be paramount.
5. OMT/GDMT as hemodynamics will tolerate (including SGLT2i).
Original Note:
Today's Communication / Plan
-
Stop furosemide.
As needed furosemide at home.
Continue metoprolol succinate 25 mg twice daily, lisinopril 20 mg daily, and Farxiga 10 mg daily.
Outpatient follow-up has been arranged by our office.
Impression / Plan
-
Impression/Plan: 45-year-old female with a history of hypertension and chronic pain on opioids who presents with nausea, vomiting, and diarrhea starting at 6 AM. Cardiology is consulted for elevated troponin and substernal chest pressure.
Outpatient map maker: will be Dr. Irwin
#Type II HI in the setting of myocarditis
-Nonspecific ST abnormality + Regional wall motion + peak troponin 2.220.
-Cardiac catheterization without obstructive coronary artery disease
-Continue aspirin, atorvastatin, metoprolol succinate.
#Cardiomyopathy (LVEF 45%), type unknown
-She does not appear volume overloaded.
-GDMT as tolerated:
-Furosemide: LVEDP 26 mmHg at 94.5 kg during cath yesterday, dramatic weight loss on standing scale this morning with intravenous furosemide
-CLYDE/ARB/ARNI: Lisinopril 20 mg daily (home dose).
-SGLT2 inhibitor: Leann MOORE started by outpatient office
-Aldosterone agonist: Can consider if BP allows.
-Beta veda: Continue metoprolol succinate 25 mg twice daily. Dose increase limited by heart rate
-Isosorbide/Hydralazine: Not currently indicated.
-ICD: Not currently indicated.
- Trend Daily weight, I/O.
- Heart failure education was provided at the bedside today
- Reassess LVEF after 90 days of maximally tolerated medical therapy
# Suspected viral induced myocarditis
- She was unable to tolerate cardiac MRI today due to claustrophobia
#Hypertension
-Chronic and stable.
-Follow with changes to medical therapy in the setting of cardiomyopathy.
#Gastroenteritis, treatment per primary team.
#Prediabetes, HgbA1c 5.7%, weight loss and regular exercise recommended.
#Chronic pain with opioid dependence
Subjective/Interval History:
Very anxious. She did not tolerate cardiac MRI due to claustrophobia.
DATA:
TTE, 03/15/25:
Mildly reduced left ventricular systolic function. Estimated left ventricular ejection fraction is 45%.
Basal to mid anteroseptal, basal to apical inferoseptal and mid to apical inferior wall hypokinesis.
Stage I diastolic dysfunction suggestive of abnormal relaxation.
No significant valvular disease.
No prior study available for comparison.
Abd US, 03/15/2025:
IMPRESSION:
There is no sonographic evidence of cholelithiasis, acute cholecystitis or biliary duct dilation.
CTA, 03/14/2025:
IMPRESSION:
1. There is no CTA evidence of aortic dissection
2. There is a 2.8 cm cyst in the left adnexa
Physical Exam
Vital Signs/Labs
Vital Signs
Temp Pulse Resp BP Pulse Ox
97.7 F 65 16 126/68 100
03/19/25 07:59 03/19/25 07:59 03/19/25 07:59 03/19/25 04:22 03/19/25 07:59
03/18/25 03/19/25 03/20/25
06:59 06:59 06:59
Actual Weight 94.5 kg 90.2 kg
03/19/25 04:33
03/19/25 04:33
APTT 78.9 Sec (23.4-35.0) H 03/18/25 02:29
Magnesium 2.0 mg/dl (1.6-2.3) 03/19/25 04:33
Triglycerides 119 mg/dl (10-149) 03/17/25 03:14
LDL Cholesterol, Calc 71 mg/dl 03/17/25 03:14
VLDL Cholesterol, Calc 23 mg/dl (0-30) 03/17/25 03:14
HDL Cholesterol 45 mg/dl 03/17/25 03:14
03/18/25
02:29
Xsp-E-Amysntvpbtj Pept 2100
Physical Exam
Constitutional: No acute distress and Comfortable
EENT: Anicteric and Moist mucous membranes
Cardiovascular: Rhythm & rate is regular, Pedal edema is absent, S1S2 is normal and Murmur/rub/gallop absent
Respiratory: Respiratory effort normal and Lungs clear to auscul.
GI: Soft, Distention absent, Flat, Non tender and Normal bowel sounds
Neuro/Psych: AO x 3
Other: Skin (Warm and dry.) and Cath Site (Bruising without hematoma)
Data Reviewed
-
Date of Service: March 19, 2025
EKG: Report Reviewed by me
Echo: Report Reviewed by me
Labs: Labs Reviewed by me
Old Records: Reviewed
[2025-03-19 09:52] VITALS: BP 121/74
[2025-03-19] MEDS: ZESTRIL 20 MG PO (09:53)
[2025-03-19] MEDS: WELLBUTRIN XL (24 hour extended release) 150 MG PO (09:53)
[2025-03-19] MEDS: LYRICA PO ×2 (09:53→13:50)
[2025-03-19] MEDS: TOPROL XL 25 MG PO (09:54)
[2025-03-19] MEDS: LASIX IV (09:54)
--- NOTE | 2025-03-19 09:55 | W.PN.HOSP.TC ---
Today's Communication/Plan
-
discharge
Assessment / Plan
Assessment / Plan
Physical Exam
General: Not in acute distress, appears comfortable at this time
HEENT: Normocephalic atraumatic moist mucus membranes
Respiratory: Clear to Auscultation Bilaterally
Cardiac: S1/S2 and Regular Rhythm
GI: Soft nontender, bowel sounds present. no rebound or guarding
Musculoskeletal: No Edema
Skin: Warm and Dry
Neuro: AO x 3 Conversant Coherent
Psych: Calm
Assessment/Plan
45F hx anxiety/depression, chronic pain on opiates, HTN who presented to the emergency room with sudden epigastric pain followed by vomiting (multiple episodes) and diarrhea (not dark black or bloody). No fever, + chills. No chest pain or shortness
of breath. No LE swelling. No rash. No sick contacts. She does not smoke cannabis.
CXR
IMPRESSION:
Unremarkable chest
CT A/P
IMPRESSION:
1. There is no CTA evidence of aortic dissection
2. There is a 2.8 cm cyst in the left adnexa
MAR: IV Dilaudid, Morphine, 1L IVF, IV Zofran, IV Protonix
Nausea/Vomiting/Diarrhea - RESOLVED
Gastroenteritis resolved
Leukocytosis - RESOLVED
-Possible viral syndrome versus manifestations of a possible underlying ACS
-CT A/P without e/o aortic dissection or acute disease
-supportive care IVF, IV Compazine PRN, IV Dilaudid PRN
-IV Protonix/Pepcid for possible gastritis contributing to pain, completed with resolution of symptoms
RUQ uneasiness feeling after eating and drinking
-RUQ ultrasound and CT imaging were unrevealing
-Monitor CMP -- stable
-symptoms since resolved
Leukocytosis - RESOLVED
Fever 100.5 F -- last fever was on March 15, 2025
Viral Syndrome - RESOLVED
-Blood cultures NGTD
-COVID and Flu both negative
-MRSA negative
Hypokalemia
Monitor and replete as necessary
Concern for Acute Coronary Syndrome
Chest Pain
Troponin Elevation
Acute HFpEF
-Continue Beta Fabienne
-Cardiac cath Tuesday March 18, 2025 appreciated no CAD, Severely elevated filling pressures and signs consistent with focal myocarditis.
-Cardiology consult appreciated hep gtt completed, briefly treated with Lasix diuresis, switched to prn on discharge, Farxiga added.
Chronic Pain, Opiate Dependence
-RESIDENTIAL FINISH CARPENTER oxycodone ; IV Dilaudid if cannot tolerate PO
-RESIDENTIAL FINISH CARPENTER Pregabalin
Anxiety/Depression
-RESIDENTIAL FINISH CARPENTER Wellbutrin
-RESIDENTIAL FINISH CARPENTER Xanax PRN
Essential HTN
-Lisinopril, Metoprolol
Mild Hyperglycemia not significant
-A1c 5.7 prediabetes
2.8 cm cyst in the left adnexa on hospital imaging
DVT Prophylaxis: Encourage ambulation
Code Status: FULL CODE
Medically stable for discharge home with outpatient follow up recommendations.
Total Time Preparing Discharge __40 minutes including examination of the patient, summary of the hospital stay, instructions for continuing care to all relevant caregivers; and preparation of discharge records, prescriptions, and referral
forms if necessary.
Anticipated Discharge: Today
Subjective/Interval History
-
Date of Service: March 19, 2025
Seen and examined at bedside in no acute distress. Ambulating without need for assist device. Overall reports feeling well. Eager to go home
Objective Data
-
Labs:
Laboratory Results
03/19/25
04:33
WBC 7.3
Hgb 12.8
Hct 37.4
Plt Count 175
Sodium 138
Potassium 4.5
Chloride 101
Carbon Dioxide 28
BUN 15
Creatinine 0.7
Glucose 101 H
Calcium 9.8
Vital Signs:
Vital Signs
Temp Pulse Resp BP Pulse Ox
97.7 F 63 16 121/74 100
03/19/25 07:59 03/19/25 09:53 03/19/25 07:59 03/19/25 09:53 03/19/25 07:59
[2025-03-19] MEDS: FARXIGA 10 MG PO (10:39)
[2025-03-19 11:10] VITALS: BP 112/81
--- NOTE | 2025-03-19 13:51 | CM ---
Reviewed chart. Met with Ms. Hayward to review discharge plans. She states she maybe able to go home soon. Reviewed with her that her Leann needs a prior auth. and will not know the cost until prior auth. is completed. Placed the one month free
and the zero co-pay coupons in her red discharge folder. She can use the one month free coupon until the prior auth is completed. Prior to admission she resides with her spouse and daughter in a one story home with one step to enter. Prior to
admission she was independent with ambulation and adls. She does not have any DME in the home. She has a prescription plan. Medical work-up in progress. The discharge plan is to return home with her spouse and daughter when medically stable.
[2025-03-19 15:27] VITALS: BP 115/53
--- NOTE | 2025-03-19 15:31 | W.DCSUMMARY ---
Discharge Summary
Discharge Data
Date of Admission: 03/14/25
Date of Discharge: 03/19/25
-
Pending Results: No
Hospital Course
45F hx anxiety/depression, chronic pain on opiates, HTN who presented to the emergency room with sudden epigastric pain followed by vomiting (multiple episodes) and diarrhea (not dark black or bloody). No fever, + chills. No chest pain or shortness
of breath. No LE swelling. No rash. No sick contacts. She does not smoke cannabis. CXR
unremarkable. CT A/P noted no CTA evidence of aortic dissection, there was a 2.8 cm cyst in the left adnexa. Nausea/Vomiting/Diarrhea resolved. Gastroenteritis resolved
Leukocytosis resolved. Possible viral syndrome versus possible manifestations underlying ACS. CT A/P without e/o aortic dissection or acute disease. Supportive care given IVF, IV Compazine PRN, IV Dilaudid PRN. IV Protonix/Pepcid for possible
gastritis contributing to pain, completed with resolution of symptoms. RUQ uneasiness feeling after eating and drinking, RUQ ultrasound and CT imaging were unrevealing. Stable CMP. Symptoms also resolved. Leukocytosis resolved. Fever 100.5 F --
last fever was on March 15, 2025. Viral Syndrome resolved. Blood cultures NGTD. COVID and Flu both negative. MRSA negative. Concern for Acute Coronary Syndrome, Troponin elevated, Beta Fabienne continued, cardiac cath Tuesday March 18, 2025
appreciated no CAD, severely elevated filling pressures and signs consistent with focal myocarditis. Acute HFpEF, Cardiology consult appreciated hep gtt completed, briefly treated with Lasix diuresis, switched to prn on discharge, Farxiga added.
Medically stable, patient was discharged home with outpatient follow up recommendations.
Discharge Plan
-
Patient Disposition: Home (Routine Discharge)
Discharge Diagnosis/Procedures: Procedure: Cardiac catheterization 03/18/2025
Myocarditis with Heart Failure Preserved Ejection Fraction
Condition: Fair
Diet: Low Sodium
Activity: No strenuous activity
Additional Activity: See attached instructions
Driving Restrictions: No driving for 24 hours
Bathing Restrictions: None
Specialty Instructions: Weigh Daily- Call MD for wt gain/loss 3 lbs overnight/5 lbs in 1 week
Activity Restrictions/Additional Instructions:
Follow up with primary care provider in 1 week of discharge and keep your appointment with Cardiology.
Farxiga, Metoprolol, and as needed Lasix have been prescribed for Heart Failure
Please take medications as prescribed/recommended and follow up with primary care provider and/or other healthcare provider involved in your care for refills and/or further adjustment to your medication regimen as necessary.
Stand Alone Forms: DC Instructions- Cath/EP Lab, Return to Work
Referrals:
Emma Centeno CRNP [Specified Professional Personl, Cardiology] - 04/08/25 8:40 am
Cathy Walsh PA [Family Provider, Family Practice] - in one week
Prescriptions:
New
dapagliflozin propanediol 10 mg Tablet
10 mg PO DAILY Qty: 30 0RF
furosemide 20 mg Tablet
20 mg PO DAILYPRN PRN (Reason: Weight gain of 3 pounds) Qty: 30 0RF
Rx Instructions:
3 lbs overnight or 5 lbs in a week
metoprolol succinate 25 mg Tablet Extended Release 24 Hr
25 mg PO BID Qty: 60 0RF
Continued
lisinopril 20 mg Tablet
20 mg PO DAILY
alprazolam 0.5 mg Tablet
0.5 mg PO DAILYPRN PRN (Reason: anxiety)
bupropion HCl [Wellbutrin XL] 150 mg Tablet Extended Release 24 Hr
150 mg PO DAILY
pregabalin 50 mg Capsule
50 mg PO TID
pregabalin 100 mg Capsule
100 mg PO HS
oxycodone 15 mg Tablet
15 mg PO 5/D
Discharge Orders:
Discharge Patient (As Directed); Ordered 03/19/25
Ordered By: Marc Szymanski
Care Plan Goals
Care Plan Goals:
Problem: Readiness for enhanced knowledge related to diagnosis and treatment plan
Goal: Understand your diagnosis and treatment plan needs, including medications if applicable.
Instructions: Know your diagnosis, underlying causes and treatment plan options, including medications if applicable. Consult with your health care team to learn about your diagnosis and treatment plan, including medications if applicable.
Discharge Date and Time
Discharge Date/Time: 03/19/25 16:11
Print Language: SPANISH
== END 2025-03-19 16:11 | disposition home or self-care (01) | DRG 286 ==
LOC: IVU 18:04
PROVIDERS: Hospitalist; Internal Medicine Cardiovascular Disease; Physician Assistant; ADMITTING PHYSICIAN Student in an Organized Health Care Education/Training Program; ATTENDING PHYSICIAN Internal Medicine; CONSULT PHYSICIAN Student in an Organized Health Care Education/Training Program; EMERGENCY PHYSICIAN Emergency Medicine; FAMILY PHYSICIAN Physician Assistant
PROC: B2111ZZ Fluoroscopy of Multiple Coronary Arteries using Low Osmolar Contrast (ICD-10-PCS; 2025-03-18)
PROC: 4A023N7 Measurement of Cardiac Sampling and Pressure, Left Heart, Percutaneous Approach (ICD-10-PCS; 2025-03-18)
PROC: B2151ZZ Fluoroscopy of Left Heart using Low Osmolar Contrast (ICD-10-PCS; 2025-03-18)
DX: I11.0 Hypertensive heart disease with heart failure (principal); I50.31 Acute diastolic (congestive) heart failure; F11.20 Opioid dependence, uncomplicated; K52.9 Noninfective gastroenteritis and colitis, unspecified; E87.6 Hypokalemia; G89.29 Other chronic pain; F41.9 Anxiety disorder, unspecified; F32.A Depression, unspecified; Z79.899 Other long term (current) drug therapy; Z87.891 Personal history of nicotine dependence; I42.9 Cardiomyopathy, unspecified; B34.9 Viral infection, unspecified; E86.0 Dehydration
CPT/HCPCS: 71045; 71275; 74174; 76700; 80048; 80053; 80061; 83036; 83605; 83690; 83735; 83880; 84484; 84703; 85025; 85027; 85652; 85730; 86140; 87040; 87070; 87147; 87502; 87811; 93005; 93306; 93458; 96361; 96374; 96375; 99152; 99153; 99285; C1894; Q9967

== ENCOUNTER → 2025-03-20 15:39 | Outpatient (REF) | payer OTHER, SELFPAY | LOC: WDC 15:39 | PROVIDERS: ATTENDING PHYSICIAN Physician Assistant | DX: Z12.31 Encounter for screening mammogram for malignant neoplasm of breast (principal) | CPT/HCPCS: 77063; 77067 ==

== ENCOUNTER 2025-05-10 13:56 | Observation (INO) | payer OTHER, SELFPAY ==
[2025-05-10] VITALS (13 sets, daily range): BP systolic 112–184; BP diastolic 57–89; BMI 33.6; BMI 32.5
--- NOTE | 2025-05-10 09:38 | ED.GENMED ---
History of Present Illness
General
Chief Complaint: Abdominal Symptoms
Source: patient
Exam Limitations: none
Time Seen by Provider: 05/10/25 09:21
History of Present Illness
History of Present Illness:
45-year-old female history of anxiety depression opioid dependence, recent history of myocarditis and gastroenteritis presents complaining onset of vomiting yesterday after starting Augmentin for a sinus infection. She has not been able to stop
vomiting since the onset. She denies use of marijuana. She denies diarrhea. No fever. No other complaints at this time
Past History
Past History
ED Past Medical History: Psychiatric and Other (History of migraine)
ED Past Surgical History: Tonsilectomy and Other (With some teeth extraction)
Social History
Tobacco: Non-smoker
Alcohol: None
Drug: None
Personal: Single
Living: with family
Employment: Employed
Family History
Family History: Other (Her mother has pulmonary embolism and alpha-1 antitrypsin deficiency.)
Phy Exam
Physical Exam
Physical Exam:
General: Somewhat ill-appearing female no acute respiratory distress
HEENT: Normocephalic atraumatic
Heart: Regular rate and rhythm
Lungs: Clear no wheeze
Abdomen is soft tender to the mid abdomen no guarding or rebound nondistended
Extremities: No cyanosis
Skin is warm no rash
Course
Orders/Labs/Results
Orders:
Orders
05/10/25 08:27
EKG [Electrocardiogram (*1)] Urgent
Reason for Study: Chest Pain
EKG- Treatment ONCE
05/10/25 09:34
0.9% Sodium Chloride 1000 ml [Nss] 1,000 ml IV BOLUS
Ondansetron Injectable [Zofran] 4 mg IV NOW STA
05/10/25 09:52
Complete Blood Count/With Diff Urgent
Comprehensive Metabolic Panel Urgent
Lipase Urgent
Troponin I Urgent
05/10/25 11:51
HYDROmorphone [Dilaudid] 0.5 mg IV NOW STA
Ondansetron Injectable [Zofran] 4 mg IV NOW STA
Abnormal Lab Results
05/10/25
09:52
WBC 16.3 H 10^3/uL
(4.8-10.8)
Abs Immat Gran (auto) 0.1 H 10^3/uL
(0-0.05)
Absolute Neuts (auto) 15.2 H 10^3/uL
(1.4-6.5)
Absolute Lymphs (auto) 0.7 L 10^3/uL
(1.2-3.4)
Neutrophils % 93.4 H %
(42.2-75.2)
Lymphocytes % 4.2 L %
(20.5-51.1)
Creatinine 0.5 L mg/dL
(0.6-1.0)
Glucose 131 H mg/dl
(70-99)
Troponin I 0.147 H* ng/ml
Lipase 14 L U/L
(23-300)
05/10/25 09:52
05/10/25 09:52
Vital Signs
Initial and Last Documented VS:
Initial Vital Signs
Temp Pulse Resp BP Pulse Ox
98.3 F 56 20 184/89 98
05/10/25 08:23 05/10/25 08:23 05/10/25 08:23 05/10/25 08:23 05/10/25 08:23
Last Documented Vital Signs
Temp Pulse Resp BP Pulse Ox
98.3 F 56 10 147/80 97
05/10/25 08:23 05/10/25 11:15 05/10/25 10:45 05/10/25 11:00 05/10/25 11:15
MDM/Problems Addressed
Differential Diagnosis Includes:
Onset of vomiting after starting Augmentin yesterday. Question adverse effect of medication versus viral illness. Will evaluate for electrolyte abnormality and treat nausea with Zofran and fluids. She does have chest pain with which is likely
from retching or reflux from vomiting however with recent history of myocarditis we will check EKG and troponin
*Pulse Oximetry
SaO2: 98
Oxygen Mode of Delivery: Room air
Patient hypoxic: no
*Critical Care Note
Total Time (30-74mins, 75-104mins- exclusive of procedures): Not Applicable
Update Note
Update Note:
Troponin is elevated today at 0.147. Patient has persistent symptoms of nausea vomiting abdominal and chest pain. Review of the chart demonstrates recent diagnosis of myocarditis about 6 to 7 weeks ago. She has been chest pain-free for quite some
time. The vomiting started yesterday. Concern for similar presentation. Discussed with emergency room attending. Despite treatment here she still has symptoms. Will admit to hospital for intractable nausea and vomiting and chest discomfort
possible recurrent myocarditis
ED Attending Note
-
Portions of this chart may have been created with voice recognition software.� Occasional wrong word or��sound alike� substitutions may have occurred due to the inherent limitations of voice recognition software.
Discharge Plan
Departure
Patient Disposition: Admit
Date of Disposition: 05/10/25
Time of Disposition: 12:01
Presentation/result/management discussed w/ accepting MD/DO: Hospitalist
Discharge Problem:
Gastroenteritis
Prescriptions:
No Action
lisinopril 20 mg Tablet
20 mg PO DAILY
alprazolam 0.5 mg Tablet
0.5 mg PO DAILYPRN PRN (Reason: anxiety)
bupropion HCl [Wellbutrin XL] 150 mg Tablet Extended Release 24 Hr
150 mg PO DAILY
pregabalin 50 mg Capsule
50 mg PO TID
pregabalin 100 mg Capsule
100 mg PO HS
oxycodone 15 mg Tablet
15 mg PO 5/D
furosemide 20 mg Tablet
20 mg PO DAILYPRN PRN (Reason: Weight gain of 3 pounds) Qty: 30 0RF
Rx Instructions:
3 lbs overnight or 5 lbs in a week
metoprolol succinate 25 mg tablet extended release 24 hr
50 mg PO DAILY
Referrals:
Cathy Walsh PA [Family Provider, Family Practice]
Interventions
Interventions:
*Risk Screen - Suicide Last Done: 05/10/25 08:23
*General Assessment Last Done: 05/10/25 09:41
*Neglect/Abuse Screening Last Done: 05/10/25 09:41
*ED- Fall Risk Assessment Last Done: 05/10/25 09:41
*ED COVID-19 Vaccine History Last Done: 05/10/25 08:23
QG-Mdospe-Ftjutccjos Assessment Last Done: 05/10/25 09:41
Discharge Date and Time
Print Language: JAPANESE
[2025-05-10] MEDS: NSS 1000 IV ×2 (09:55→17:10)
[2025-05-10] MEDS: ZOFRAN 4 MG IV ×2 (09:55→12:07)
[2025-05-10 09:59] LABS: Hematocrit 41.8 % (37.0-47.0); Hemoglobin 14.3 g/dL (12.0-16.0); Mean Corp Hgb Conc. 34.2 g/dL (33.0-37.0); Mean Corpuscular Volume 84.6 fL (81.0-99.0); Nucleated Red Blood Cells % 0 %; Platelet Count 243 10^3/uL (130-400); Red Cell Dist. Width 12.8 % (11.5-14.5)
[2025-05-10 10:24] LABS: ALT (SGPT) 27 U/L (0-35); AST (SGOT) 29 U/L (14-36); Albumin 4.7 g/dl (3.5-5.0); Alkaline Phosphatase 55 U/L (38-126); Blood Urea Nitrogen 16 mg/dl (7-17); Calcium 9.6 mg/dl (8.4-10.2); Carbon Dioxide 23 mmol/L (22-30); Chloride 105 mmol/L (98-107); Estimated Creatinine Clearance > 125 ml/min; Glucose 131 mg/dl (70-99); Lipase 14 U/L (23-300); Potassium 4.4 mmol/L (3.5-5.1); Sodium 137 mmol/L (135-145); Total Protein 7.9 g/dl (6.3-8.2); Troponin I 0.147 ng/ml; eGFR > 60.00
[2025-05-10] MEDS: DILAUDID 0.5 MG IV (12:07)
--- NOTE | 2025-05-10 13:56 | HPS.HSE ---
Addendum entered and electronically signed by Анна Carter MD 05/10/25 15:48:
I personally performed a history and physical exam of the patient and discussed management with the resident. I reviewed the resident's note and agree with the documented findings and plan of care HPI/CC.
45-year-old female with intractable vomiting since she ate a salad yesterday and took Augmentin after that. She also had chest pain after vomiting
On examination
Flushed face
Cardiovascular system S1-S2 appreciated
Chest clear to auscultation
Abdomen mild epigastric discomfort with palpation no rigidity
No pedal edema
I am not convinced that this is allergic reaction to Augmentin. Possible gastritis/gastroenteritis.
Add PPI, symptomatic treatment
Clear liquid diet when nausea/vomiting subsides
Chest pain likely secondary to gastritis/esophagitis from vomiting
Add a PPI
Slightly elevated troponin-follow. History of myocarditis recently patient could not tolerate MRI
Repeat echo ordered by cardiology
Monitor on telemetry
Discussed with cardiology
Elevated blood pressure-continue metoprolol and lisinopril. Elevation likely secondary to stress from vomiting
Leukocytosis with sinus infection-continue ceftriaxone for now
Severe spinal canal stenosis with C4, C5, C6 ACDF with instrumentation-on chronic opiates-continue
Discussed with significant other at bedside
Discussed with cardiology
Original Note:
Family Physician
-
Family Physician: Dr. Pat Shelton
Chief Complaint
-
Intractable vomiting, chest pain
History of Present Illness
45 y/o female with PMHx of recent myocarditis diagnosed at on 03/18, HTN, chronic back pain s/p anterior cervical discectomy and fusion 09/19/24 on opioids, bilateral carpel tunnel, anxiety, depression presents to the ED for intractable vomiting
and chest pain. About 9 days ago the patient came down with a cold and sinus congestion. Yesterday she went to her PCP and was diagnosed with a sinus infection and prescribed Augmentin. Last night after her first dose of Augmentin, she started
vomiting intractable. She stated she vomited 'over a million times' all last night. She had a home made salad for dinner before hand which is not unusual for her. She started to have some chest pain after throwing up so many times and believes it is
more related to her 'violent' emesis episodes rather than being related to her history of myocarditis. She endorses feeling warm after she started throwing up, but no detected fevers or chills. She denies any hematemesis, hematochezia, melena, heart
palpitations, SOB, dysuria, or hematuria. She denies any marijuana use.
She just saw her cardiology DR[employer] MESSEN[employer] Emma Centeno yesterday morning before she had the Augmentin and was told to f/u for repeat echo in June. Currently there were no cardiac concerns. She was diagnosed with cardiac cath on 03/18/25 for focal
hypokinesis of the mid inferior wall without corresponding coronary lesion, consistent with focal myocarditis. She did not have an MRI due to claustrophobia.
In the ED, she was HTN 184/89, HR 56, RR 20, afebrile satting well on room air. Her WBC was 16.3 with left shift 93.4% neutrophils, troponin 0.147. Lipase 14. Her EKG showed sinus bradycardia with changes in ST segments in inferior leads compared to
prior. She was given 1 L NS, zofran 4mgx2, Dilaudid 0.5. Cardiology was consulted for troponin elevation, ST changes and history of myocarditis.
Medical History
Past Medical History
Past Medical History: Reports Other (As per below)
Additional Past Medical History:
1. Myocarditits
2. HTN
3. Severe spinal canal and neural foraminal stenosis s/p anterior cervical discectomy and fusion 09/19/2024 on chronic opioids
4. Bilateral carpel tunnel disease
5. Anxiety/depression
6. Uterine fibroids
Past Surgical History: Reports Other (As below)
Additional Past Surgical History:
1. Anterior cervical discectomy and fusion 09/19/2024 on chronic opioids
2. Cardiac cath 03/18/25
3. [place] tooth removal
4. Tonsillectomy
Social History
Tobacco: Former Smoker (15 pack year history - quite 2010)
Alcohol: None
Drug: None
Personal:
Living: With Family
Family History
Family History: Other (Mom: Anti-trypsin 1 deficiency, COPD, brain aneurysm, CVA (heavy smoker) Dad: Lung cancer (heavy smoker), diabetes Brother: Emphysema )
Allergies / Home Medications
Allergies reflects when Allergies were last updated in [facility].
Home Medications with original date entered in [facility]
Allergy/Medication List:
Allergies
Allergy/AdvReac Type Severity Reaction Status Date / Time
fruit Allergy Tongue Uncoded 05/10/25 08:27
Swelling
Home Medications
alprazolam 0.5 mg tablet 0.5 mg PO DAILYPRN PRN anxiety 09/10/24
bupropion HCl 150 mg 24 hr tablet, extended release (Wellbutrin XL) 150 mg PO DAILY Mental Health/Anxiety 09/10/24
lisinopril 20 mg tablet 20 mg PO DAILY Blood Pressure 09/10/24
pregabalin 100 mg capsule 100 mg PO HS Pain 09/10/24
pregabalin 50 mg capsule 50 mg PO TID Pain 09/10/24
oxycodone 15 mg tablet 15 mg PO 5/D Pain 03/14/25
furosemide 20 mg tablet 20 mg PO DAILYPRN PRN Weight gain of 3 pounds #30 tabs 03/19/25
metoprolol succinate 25 mg tablet,extended release 24 hr 50 mg PO DAILY 05/10/25
Review of Systems
-
History Source: Patient
Constitutional: Reports Chills
EENT: Reports Runny Nose and Other (Sinus pressure, congestion )
Respiratory: Reports No Symptoms
Cardiac: Reports No Symptoms
Abdomen/GI: Reports Abdominal Pain, Nausea and Vomiting
: Reports No Symptoms
Skin: Reports Other (Flushed )
Neurological: Reports Numbness (Bilateral carpel tunnel )
Hematologic/Lymphatic: Reports No Symptoms
Physical Exam
Vital Signs
Vital Signs
Temp Pulse Resp BP Pulse Ox
98.3 F 82 25 133/70 96
05/10/25 08:23 05/10/25 13:00 05/10/25 11:30 05/10/25 13:00 05/10/25 13:00
Physical Exam
General: Other (Flushed, appears unwell)
HEENT: PERRLA, Pharyngeal Erythema and Other (Tenderness to palpation around sinuses, inflamed nasal turbinate's )
Respiratory: Clear
Cardiac: S1/S2 and Regular Rhythm
GI: Soft, Non Distended, Normal Bowel Sounds and Tender (Slight mid-epigastric tenderness)
Genito-urinary: Deferred by me
Musculoskeletal: No Cyanosis and No Edema
Skin: Warm and Dry
Neuro: AO x 3
Psych: Calm
Laboratory Results
-
05/10/25 09:52
05/10/25 09:52
Laboratory Results
Total Bilirubin 0.8 mg/dl (0.2-1.3) 05/10/25 09:52
AST 29 U/L (14-36) 05/10/25 09:52
ALT 27 U/L (0-35) 05/10/25 09:52
Alkaline Phosphatase 55 U/L (38-126) 05/10/25 09:52
Troponin I 0.147 ng/ml H* 05/10/25 09:52
Lipase 14 U/L (23-300) L 05/10/25 09:52
Impression/Plan
-
This is a 45 y/o female with pmhx myocarditis diagnosed early March presenting with intractable vomiting and chest pain. She has an elevated troponin and ST changes in EKG compared to prior. Admission for inability for PO intake and trend troponin
for concerns of myocarditis recurrence.
Cardiac cath 03/18/25:
CONCLUSIONS
1. Right dominant circulation with a difficult to cannulate right coronary artery but no coronary artery disease.
2. Systemic hypertension.
3. Severely elevated filling pressures (LVEDP = 26 mmHg at 94.5 kg) with evidence of diastolic dysfunction (A wave to 44 mmHg).
4. Low normal left ventricular systolic function (LV EF = 50%) with focal hypokinesis of the mid inferior wall without corresponding coronary lesion, consistent with focal myocarditis.
Echo 03/15/25:
Mildly reduced left ventricular systolic function. Estimated left ventricular
ejection fraction is 45%.
Basal to mid anteroseptal, basal to apical inferoseptal and mid to apical
inferior wall hypokinesis.
Stage I diastolic dysfunction suggestive of abnormal relaxation.
No significant valvular disease.
No prior study available for comparison.
Chest pain
Non-ischemic troponin elevation
--Pmhx myocarditis, troponin 0.147, ST changes in inf. leads - concerns for recurrence of myocarditis, but most likely due to severe vomiting
--Admit to IVU for observation
--Trend troponin
--Appreciate cardiology
--Check ESR, CRP
Intractable vomiting/gastritis
--Augmentin allergy vs gastritis?
--NPO with sips of clears - advance diet as tolerated
--Zofran
--Fluids
--Recommend outpatient allergy testing to determine if true allergy to Augmentin
Leukocytosis
Sinus infection
--IV ceftriaxone
--Monitor temp and WBC
Long QTc
-470 - monitor
Hypertension
--Hypertensive in ED 184/89 now 133/70
--Continue home metoprolol 50mg qHS, lisinopril 20mg daily
HFrEF in setting of myocarditis - not in exacerbation
--03/15/25 EF 45% with regional wall motion abnormalities
--gdmt lisinopril, metoprolol, farxiga - no MRA for BP
--Lasix 20mg PRN for 3lbs weight gain
--Monitor I&Os and signs of volume overload
Severe spinal canal and neural foraminal stenosis s/p ACFD on chronic opioids
Chronic pain
Bilateral carpel tunnel
--Continue home oxy
--Continue home pregabalin
--Bowel regimen
Anxiety/depression
--Continue home bupropion and PRN alprazolam
#Uterine fibroid 2.2cm
#Maternal history alpha-1 antitrypsin deficiency
NPO - sips of clears
Full Code
DVT lovenox
Significant other at bedside on admission.
--- NOTE | 2025-05-10 14:11 | CM ---
Addendum entered by Paige Harding 05/10/25 14:54:
Observation Status Notice explained; form signed @ 1527
Original Note:
Met with patient at the bedside in the ED
Pharmacy verified: [facility] @ [id number] [facility]
Lives w/ significant other; [employer]anc[employer] w/ basement; 1 step to enter; 12 steps down to basement; railings present; bath has tub w/ shower
PLOF: independent with ambulation, stairs, and ADLs; drives full time paramedic job; no DME
Significant other, Wiliam, will provide transportation home
No SNF or Home Health utilization history
Plan: anticipate discharge to home when medically stable; Case Management will monitor for needs/services
--- NOTE | 2025-05-10 14:27 | W.PN.CD ---
Addendum entered and electronically signed by Alejandro Hall MD 05/10/25 15:46:
I saw and evaluated the patient, and I provided the substantive portion of the medical decision making.
I reviewed and agree with the note by Emma Centeno and it accurately reflects our care.
I personally performed the medical decision making of the this encounter and my assessment and plan is below:
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
nausea/vomitting and abdominal pain 1 hour after taking Augmentin for 'acute sinusitis' last night. Vomiting was unrelenting so she sought care. This was not similar to the pain she felt during last presentation for acute myocarditis. Very asked
to comment as troponin was checked and mildly elevated.
On exam she is erythematous in her face and chest wall. Regular rate and rhythm normal S1-S2 no murmur rubs or gallops were appreciated abdomen was soft nontender nondistended.
EKG shows sinus bradycardia with U waves nonspecific ST abnormality. Unchanged from prior.
Troponin 0.147, 0.399.white count is elevated at 16.3 with a left shift.
Currently, still complaining of nausea and abdominal pain. No chest pain. I do not suspect there is an acute cardiac issue but rather non-IA troponin elevation in the setting of underlying cardiomyopathy and acute GI illness. However given we are
headed into a holiday weekend I will update her echocardiogram now. Continue CLYDE inhibitor and beta-veda. Continue treatment for underlying issues of nausea and vomiting.
Will follow
findings discussed with Dr Carter
Original Note:
Today's Communication / Plan
-
check 2nd troponin
Impression / Plan
-
Ms. 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
presented to the ER with severe vomiting since last night. Vomiting occurred shortly after taking new Augmentin (prescribed by PCP yesterday for sinus infection). We are consulted for abnormal troponin.
Non-ischemic myocardial injury - acute, due to severe vomiting.
- initial troponin 0.147, trend.
- denies anginal symptoms.
Myocarditis - acute in March 2025 with peak troponin 2.22 (type II IA).
- nonischemic CM EF 45%.
- stable, no recurrent cardiac symptoms.
NICM - EF 45% in March 2025.
- no overt heart failure on exam.
- weight is stable on 199 lbs, Lasix is PRN.
- tolerating Toprol and Lisinopril, continue.
- fluid/sodium restrictions.
HTN - stable on Toprol and Lisinopril, continue.
Vomiting - acute, from new Augmentin.
- per hospitalist.
Physical Exam
Vital Signs/Labs
Vital Signs
Temp Pulse Resp BP Pulse Ox
98.3 F 88 25 133/70 98
05/10/25 08:23 05/10/25 13:54 05/10/25 11:30 05/10/25 13:00 05/10/25 13:15
05/09/25 05/10/25 05/11/25
06:59 06:59 06:59
Actual Weight 201 lb 15.095 oz
05/10/25 09:52
05/10/25 09:52
LAB Results
05/10/25
09:52
Troponin I 0.147 H*
Physical Exam
Constitutional: No acute distress
EENT: Anicteric and Moist mucous membranes
Cardiovascular: Rhythm & rate is regular
Respiratory: Respiratory effort normal and Lungs clear to auscul.
GI: Soft, Non tender and Normal bowel sounds
Neuro/Psych: AO x 3
Other: Skin (warm, dry)
Data Reviewed
-
Date of Service: May 10, 2025
Medical Decision Making: Reviewed Test Results
Echo: Report Reviewed by me
Labs: Labs Reviewed by me
Old Records: Reviewed
[2025-05-10 14:39] LABS: Troponin I 0.399 ng/ml
[2025-05-10 16:30] LABS: C-Reactive Protein 21.70 mg/L (0.0-10.00)
[2025-05-10] MEDS: PROTONIX IV 40 MG IV (17:12)
[2025-05-10] MEDS: NSS (PRESERVATIVE FREE) 10 ML IV (17:12)
[2025-05-10] MEDS: ROCEPHIN 1000 MG IV (17:13)
[2025-05-10] MEDS: STERILE WATER FOR INJECTION 10 ML IV (17:13)
[2025-05-10] MEDS: ROXICODONE 15 MG PO ×2 (17:25→22:06)
[2025-05-10 17:37] LABS: Troponin I 0.413 ng/ml
[2025-05-10] MEDS: LYRICA PO (18:14)
[2025-05-10] MEDS: ROXICODONE PO ×2 (18:17→18:32)
[2025-05-10] MEDS: LOVENOX 40 MG SC (18:22)
--- NOTE | 2025-05-10 18:25 | PTCARENOTE ---
Rec'd pt from ED. Oriented pt to room. NSS infusing at 130 ml/hr. Pt has no complaints at this time. Plan of care reviewed w/ pt and verbalizes understanding. Currently in bed; call shantel w/in reach.
--- NOTE | 2025-05-10 20:49 | PTCARENOTE ---
Assumed care of the pt @ 1900 Pt is AAOx3 SR on the monitor denies cp NS @ 130 ML/HR VSS. Pt ambulates independently in the room. POC discussed with pt. Call funes within reach.
[2025-05-10] MEDS: LYRICA 100 MG PO (22:05)
[2025-05-10] MEDS: TOPROL XL 50 MG PO (22:06)
[2025-05-10] MEDS: LYRICA 50 MG PO (22:06)
[2025-05-10 23:06] LABS: Troponin I 0.329 ng/ml
[2025-05-11 02:19] VITALS: BP 149/77
[2025-05-11] MEDS: TYLENOL 650 MG PO (02:27)
[2025-05-11 03:39] LABS: Hematocrit 37.4 % (37.0-47.0); Hemoglobin 12.7 g/dL (12.0-16.0); Mean Corp Hgb Conc. 34.0 g/dL (33.0-37.0); Mean Corpuscular Volume 84.6 fL (81.0-99.0); Nucleated Red Blood Cells % 0 %; Platelet Count 232 10^3/uL (130-400); Red Cell Dist. Width 13.3 % (11.5-14.5)
[2025-05-11 05:18] LABS: ALT (SGPT) 18 U/L (0-35); AST (SGOT) 23 U/L (14-36); Albumin 3.5 g/dl (3.5-5.0); Alkaline Phosphatase 44 U/L (38-126); Blood Urea Nitrogen 12 mg/dl (7-17); Calcium 8.3 mg/dl (8.4-10.2); Carbon Dioxide 26 mmol/L (22-30); Chloride 110 mmol/L (98-107); Estimated Creatinine Clearance > 125 ml/min; Glucose 96 mg/dl (70-99); Potassium 3.7 mmol/L (3.5-5.1); Sodium 139 mmol/L (135-145); Total Protein 5.9 g/dl (6.3-8.2); eGFR > 60.00
[2025-05-11 05:28] LABS: Troponin I 0.403 ng/ml
[2025-05-11 07:37] VITALS: BP 114/78
--- NOTE | 2025-05-11 07:50 | PTCARENOTE ---
Assumed care of pt from prev nsg shift; pt AAOx3 w/no c/o CP or SOB. Pt also w/no c/o nausea or vomiting. Pt's VSS w/HR in the 50's & BP 114/78 this AM. Pt is SB on telemetry monitoring. Pt w/NSS IVF infusing through patent IV line as ordered. Pt
w/no addtl needs at this time. Plan of care ongoing.
[2025-05-11] MEDS: LYRICA 50 MG PO ×2 (08:11→16:31)
[2025-05-11] MEDS: MIRALAX 17 GRAMS PO (08:11)
[2025-05-11] MEDS: PROTONIX 40 MG PO (08:11)
[2025-05-11] MEDS: ROXICODONE 15 MG PO ×3 (08:11→16:31)
[2025-05-11] MEDS: WELLBUTRIN XL (24 hour extended release) 150 MG PO (08:11)
[2025-05-11] MEDS: NSS 1000 IV ×2 (08:12→16:30)
[2025-05-11] MEDS: NSS IV (08:12)
[2025-05-11] MEDS: ZESTRIL 20 MG PO (08:12)
--- NOTE | 2025-05-11 09:08 | W.PN.CD ---
Today's Communication / Plan
-
Trend more troponin
EKG today and tomorrow
Will see if she would consider medicated cardiac MRI
Check pBNP
Check D-Dimer, will see if radiology can comment on CT chest March 2025 about pulmonary arteries
If DDimer elevated I would like a CTA chest with pulmonary embolism protocol
A bit of a mystery
Myocarditis may not have resolved yet is a possibility but unclear what the unifying diagnosis is
55 min spent in caring for this complext patient today
Impression / Plan
-
Ms. Hayward is a 45-year-old female with hypertension, troponin elevation from ? 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
pain on opioids, who presented to the ER with severe vomiting since last night. Vomiting occurred shortly after taking new Augmentin (prescribed by PCP yesterday for sinus infection). We are consulted for abnormal troponin.
In March had similar presentation, peak trop 2.2 with risk and fall of troponin
Now with similar symptoms. No dyspnea
- Trop are up a bit but levelling off 0.147=>0.399=>0.413=>0.329
- This time echo is w/o wall motion and EF now normal
This morning she feels well
Non-ischemic myocardial injury - acute, due to severe vomiting.
- initial troponin 0.147, trend.
- denies anginal symptoms.
Suspected Myocarditis - acute in March 2025 with peak troponin 2.22 (type II CA).
- nonischemic CM EF 45%.
- stable, no recurrent cardiac symptoms
- Could not have cardia MRI (claustrophobia)
Recent Hx of HFmrEF
- If EF stays normal will be able to say HFimpEF, not on one reading
- She has no dyspnea
- Has not used home Lasix
HTN - stable on Toprol and Lisinopril, continue.
Vomiting - acute, ? jsut from new Augmentin.
- per hospitalist.
Lipases negative in March and yesterday
Seems to young for intestinal ischemia
CT chest 03/2025: No aortic dissection, no comment on pulmonary arteries/PE
Subjective:
Feels well
Physical Exam
Vital Signs/Labs
Vital Signs
Temp Pulse Resp BP Pulse Ox
99.2 F 52 18 149/77 100
05/11/25 07:41 05/11/25 07:30 05/11/25 07:41 05/11/25 02:19 05/11/25 07:41
05/10/25 05/11/25 05/12/25
06:59 06:59 06:59
Actual Weight 88.5 kg
05/11/25 03:17
05/11/25 04:32
05/10/25
13:54
Ygp-[id number] Pept 2590
LAB Results
05/10/25 05/10/25 05/10/25
09:52 13:54 16:58
Troponin I 0.147 H* 0.399 H* D 0.413 H*
05/10/25 05/11/25 05/11/25
22:28 03:17 04:32
Troponin I 0.329 H* Cancelled 0.403 H*
Data Reviewed
-
Date of Service: May 11, 2025
[2025-05-11 10:13] LABS: D-Dimer 0.62 ug/mlFEU (0.00-0.50)
[2025-05-11 10:31] LABS: Troponin I 0.290 ng/ml
[2025-05-11 11:31] VITALS: BP 107/56
--- NOTE | 2025-05-11 14:16 | W.PN.HOSP.TC ---
Addendum entered and electronically signed by Leanne Garza MD 05/11/25 14:52:
Attending�addendum:
I�saw�and�evaluated�the�patient.�I�reviewed�the�resident�s�note�and�agree�with�findings�and�plan�as�documented�in�the�resident�s�note.��
�patient seen and examined at bedside, denies any chest pain or shortness of breath, no abdominal pain, no nausea, no vomiting, no diarrhea or constipation.
Cardiology recommending CTA chest
Physical�exam:
GENERAL : Patient is awake, alert, oriented x3
HEENT: Nonicteric sclerae, PERRLA, EOMI. Oropharynx clear. Moist mucous membranes. Conjunctivae appear well perfused.
CHEST: Chest wall is nontender.
HEART: Regular rate and rhythm without murmurs.
LUNGS: Clear to auscultation bilaterally.
ABDOMEN: Soft, positive bowel sounds, nontender, no organomegaly.
RECTAL: Deferred.
SKIN: No rash, no excessive bruising, petechiae, or purpura.
NEUROLOGIC: Cranial nerves II-XII intact without motor/sensory deficit.
�
Assessment/plan:
Nausea vomiting, possible gastroenteritis.
Improved.
Advanced diet
Chest pain.
Possible secondary to nausea and vomiting.
Is more like esophageal pain and increased with leaning forward.
Echocardiogram done shows improved EF.
Cardiology recommending CT chest
Sinusitis.
Continue Rocephin.
Possible discharge on ceftin
CODE STATUS: Full code
DVT prophylaxis: Lovenox
Diet: Low residual
�
Total�time�spent�on�today�s�encounter�was�55�minutes�which�included�time�spent�in�counseling�the�patient/family�regarding�diagnosis�and�treatment�plan�as�listed�above,�goals�of�care,�and�symptom�management.�Case�was�discussed�with�nursing�staff,�spec
ialists,�and�care�coordinators/case�management.�All�labs�and�imaging�personally�reviewed�by�me.�Remainder�the�time�spent�in�detailed�review�of�previous�records,�lab�data,�imaging,�and�other�medical�provider�documentation.
Original Note:
Today's Communication/Plan
-
CTA to rule out PE
Possibly keep for MRI under sedation per cardiology -will defer to them for timing and discharge considering elevated troponin
Assessment / Plan
Assessment / Plan
This is a 45 y/o female with pmhx myocarditis diagnosed early March presenting with intractable vomiting and chest pain. She has an elevated troponin and ST changes in EKG compared to prior. Admission for inability for PO intake and trend troponin
for concerns of myocarditis recurrence.
Cardiac cath 03/18/25:
CONCLUSIONS
1. Right dominant circulation with a difficult to cannulate right coronary artery but no coronary artery disease.
2. Systemic hypertension.
3. Severely elevated filling pressures (LVEDP = 26 mmHg at 94.5 kg) with evidence of diastolic dysfunction (A wave to 44 mmHg).
4. Low normal left ventricular systolic function (LV EF = 50%) with focal hypokinesis of the mid inferior wall without corresponding coronary lesion, consistent with focal myocarditis.
Echo 03/15/25:
Mildly reduced left ventricular systolic function. Estimated left ventricular
ejection fraction is 45%.
Basal to mid anteroseptal, basal to apical inferoseptal and mid to apical
inferior wall hypokinesis.
Stage I diastolic dysfunction suggestive of abnormal relaxation.
No significant valvular disease.
No prior study available for comparison.
Chest pain
Non-ischemic troponin elevation
--Pmhx myocarditis, troponin 0.147, ST changes in inf. leads - concerns for recurrence of myocarditis, but most likely due to severe vomiting
--Admit to IVU for observation
-- Troponin elevated to 0.413 at highest -continuing to trend per cardiology
-- D-dimer slightly elevated - CTA to rule out PE per cardiology
-- Considering inpatient MRI with sedation to evaluate for myocarditis after the weekend per cardiology
-- EKG today and tomorrow
Intractable vomiting/gastritis
--Augmentin allergy vs gastritis?
--Tolerating solids now
--Zofran
--Fluids
--Recommend outpatient allergy testing to determine if true allergy to Augmentin
Leukocytosis
Sinus infection
--IV ceftriaxone
--Monitor temp and WBC
Long QTc
-470 - monitor
Hypertension
--Continue home metoprolol 50mg qHS, lisinopril 20mg daily
HFrEF in setting of myocarditis - not in exacerbation
--03/15/25 EF 45% with regional wall motion abnormalities
--gdmt lisinopril, metoprolol, farxiga - no MRA for BP
--Lasix 20mg PRN for 3lbs weight gain
--Monitor I&Os and signs of volume overload
Severe spinal canal and neural foraminal stenosis s/p ACFD on chronic opioids
Chronic pain
Bilateral carpel tunnel
--Continue home oxy
--Continue home pregabalin
--Bowel regimen
Anxiety/depression
--Continue home bupropion and PRN alprazolam
#Uterine fibroid 2.2cm
#Maternal history alpha-1 antitrypsin deficiency
NPO - sips of clears
Full Code
DVT lovenox
Significant other at bedside on admission.
Anticipated Discharge: Within 24 hours
Subjective/Interval History
-
Date of Service: May 11, 2025
Feels sleepy. Endorses that headache, some neck pain per the patient's baseline with prior anterior cervical discectomy and fusion. Chest pain has resolved along with nausea.
Objective Data
-
Labs:
Laboratory Results
05/11/25 05/11/25
03:17 04:32
WBC 10.4
Hgb 12.7
Hct 37.4
Plt Count 232
Sodium Cancelled 139
Potassium Cancelled 3.7
Chloride Cancelled 110 H
Carbon Dioxide Cancelled 26
BUN Cancelled 12
Creatinine Cancelled 0.6
Glucose Cancelled 96
Calcium Cancelled 8.3 L
Total Bilirubin Cancelled 0.4
AST Cancelled 23
ALT Cancelled 18
Alkaline Phosphatase Cancelled 44
Vital Signs:
Vital Signs
Temp Pulse Resp BP Pulse Ox
98.7 F 77 18 107/56 99
05/11/25 11:40 05/11/25 11:45 05/11/25 11:40 05/11/25 11:31 05/11/25 11:40
I&O
05/10/25 05/11/25 05/12/25
06:59 06:59 06:59
Intake Total 800 / 800 960 / 960
Balance 800 / 800 960 / 960
Review of Systems
-
History Source: Patient
EENT: Reports No Symptoms Reported and Other (Headache, sinus congestion, neck pain per baseline)
Respiratory: Reports No Symptoms
Cardiac: Reports No Symptoms
Abdomen/GI: Reports No Symptoms
Genitourinary: Reports No Symptoms
Neuro: Reports No Symptoms
Physical Exam
-
General: No Apparent Distress and Comfortable
HEENT: Normocephalic
Respiratory: Clear to Auscultation
Cardiac: Regular Rhythm and S1/S2
GI: Soft, Nontender, Nondistended and Normal Bowel Sounds
Skin: Warm and Dry
Neuro: AO x 3
Psych: Calm
[2025-05-11 15:06] VITALS: BP 118/72
[2025-05-11] MEDS: STERILE WATER FOR INJECTION 10 ML IV (16:31)
[2025-05-11] MEDS: FLUSH (NSS) 2 FLUSH IV (16:31)
[2025-05-11] MEDS: ROCEPHIN 1000 MG IV (16:31)
--- NOTE | 2025-05-11 17:36 | W.DCSUMMARY ---
Addendum entered and electronically signed by Leanne Garza MD 05/11/25 18:59:
Attending�addendum:
I�saw�and�evaluated�the�patient.�I�reviewed�the�resident�s�note�and�agree�with�findings�and�plan�as�documented�in�the�resident�s�note.��
�patient seen and examined at bedside, denies any chest pain or shortness of breath, no abdominal pain, no nausea, no vomiting, no diarrhea or constipation.
Cardiology recommending CTA chest which came back negative for PE.
Physical�exam:
GENERAL : Patient is awake, alert, oriented x3
HEENT: Nonicteric sclerae, PERRLA, EOMI. Oropharynx clear. Moist mucous membranes. Conjunctivae appear well perfused.
CHEST: Chest wall is nontender.
HEART: Regular rate and rhythm without murmurs.
LUNGS: Clear to auscultation bilaterally.
ABDOMEN: Soft, positive bowel sounds, nontender, no organomegaly.
RECTAL: Deferred.
SKIN: No rash, no excessive bruising, petechiae, or purpura.
NEUROLOGIC: Cranial nerves II-XII intact without motor/sensory deficit.
�
Assessment/plan:
Nausea vomiting, possible gastroenteritis.
Improved.
Advanced diet
Chest pain.
Possible secondary to nausea and vomiting.
Is more like esophageal pain and increased with leaning forward.
Echocardiogram done shows improved EF.
Cardiology recommending CT chest which came back negative for PE
Sinusitis.
Continue Rocephin.
will discharge on ceftin
CODE STATUS: Full code
DVT prophylaxis: Lovenox
Diet: Low residual
�
Total�time�spent�on�today�s�encounter�was�40�minutes�which�included�time�spent�in�counseling�the�patient/family�regarding�diagnosis�and�treatment�plan�as�listed�above,�goals�of�care,�and�symptom�management.�Case�was�discussed�with�nursing�staff,�spec
ialists,�and�care�coordinators/case�management.�All�labs�and�imaging�personally�reviewed�by�me.�Remainder�the�time�spent�in�detailed�review�of�previous�records,�lab�data,�imaging,�and�other�medical�provider�documentation.
Original Note:
Documented by User: Ronda Borjas MD, Resident 05/11/25 17:39
Discharge Summary
Discharge Data
Date of Admission: 05/10/25
Date of Discharge: 05/11/25
-
Pending Results: No
Hospital Course
Primary diagnosis:
Nonischemic troponin elevation
Gastritis
Sinusitis
Secondary diagnoses:
Hypertension
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
Severe spinal canal and neural foraminal stenosis status post ACDF TM chronic opioids
Anxiety/depression
Hospital course:
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 She started to have cold-like symptoms about 9 days prior and diagnosed with sinusitis on 05/09 by
primary care provider and started on Augmentin. She had a salad for dinner and then her first dose of Augmentin and proceeded to have intractable bilious vomiting the entire night at which point she noticed some chest pain. She came into the ED
for further evaluation. In the ED, she was hypertensive 184/89, elevated respiratory rate, afebrile. WBC 16.3 with left shift and troponin 0.47. Her EKG revealed some ST segment changes in the inferior leads compared to prior. Cardiology was
consulted for further workup. She was admitted to the IVU with antibiotics, fluids, antiemetics and her troponins were trended. Echo revealed improved EF from 45 to 63% and her regional wall abnormalities appeared to have resolved. Overnight, her
troponins increased to 0.413 at highest then started to downtrend. Her nausea and chest pain resolved. White cell count went back to normal. Due to ongoing slight troponin elevation, cardiology ordered CTA to rule out PE. CTA was unremarkable.
Today, patient is stable for discharge. Appears to have baseline elevated troponins in setting of prior myocarditis and aggravation from severe vomiting. Imaging findings were reassuring. Discharged on 500 mg Ceftin twice daily for next 5 days to
treat sinusitis. If chest pain returns, please reach out to your rubberizing mechanic immediately.
Imaging:
Chest CT 05/11/2025
1. No evidence of central, lobar or segmental pulmonary embolism. Evaluation of the distal pulmonary arteries is limited secondary to mild motion artifact.
2. No focal airspace disease.
Echo 05/10/2025
1. Left ventricular ejection fraction is normal with an ejection fraction of 63 % by Mark's biplane method of discs.
2. No significant valve disease.
3. Compared to the prior on 03/15/25, the ejection fraction has improved from 45% on the prior to normal. Regional wall motion abnormalities have resolved.
Cardiac cath 03/18/25:
CONCLUSIONS
1. Right dominant circulation with a difficult to cannulate right coronary artery but no coronary artery disease.
2. Systemic hypertension.
3. Severely elevated filling pressures (LVEDP = 26 mmHg at 94.5 kg) with evidence of diastolic dysfunction (A wave to 44 mmHg).
4. Low normal left ventricular systolic function (LV EF = 50%) with focal hypokinesis of the mid inferior wall without corresponding coronary lesion, consistent with focal myocarditis.
Echo 03/15/25:
Mildly reduced left ventricular systolic function. Estimated left ventricular
ejection fraction is 45%.
Basal to mid anteroseptal, basal to apical inferoseptal and mid to apical
inferior wall hypokinesis.
Stage I diastolic dysfunction suggestive of abnormal relaxation.
No significant valvular disease.
No prior study available for comparison.
Discharge Plan
-
Patient Disposition: Home (Routine Discharge)
Discharge Diagnosis/Procedures: Gastritis
Non ischemic troponin elevation
Sinusitis
Condition: Good
Diet: As tolerated
Activity: As tolerated
Driving Restrictions: As prior to admission
Bathing Restrictions: None
Activity Restrictions/Additional Instructions:
Please consider outpatient allergy testing for Augmentin
Please follow up with cardiology. If chest pain returns, please let your rubberizing mechanic know.
Cefuroxime 500mg twice daily for next 5 days for sinus infection
Referrals:
Cathy Walsh PA [Family Provider, Family Practice] - in less than 1 week
Alejandro Hall MD [Active, Cardiology] - in one to two weeks
Prescriptions:
New
cefuroxime axetil 500 mg tablet
500 mg PO BID 5 Days Qty: 10 0RF
Continued
lisinopril 20 mg Tablet
20 mg PO DAILY
alprazolam 0.5 mg Tablet
0.5 mg PO DAILYPRN PRN (Reason: anxiety)
bupropion HCl [Wellbutrin XL] 150 mg Tablet Extended Release 24 Hr
150 mg PO DAILY
pregabalin 50 mg Capsule
50 mg PO TID
pregabalin 100 mg Capsule
100 mg PO HS
oxycodone 15 mg Tablet
15 mg PO 5/D
furosemide 20 mg Tablet
20 mg PO DAILYPRN PRN (Reason: Weight gain of 3 pounds) Qty: 30 0RF
Rx Instructions:
3 lbs overnight or 5 lbs in a week
metoprolol succinate 25 mg tablet extended release 24 hr
50 mg PO DAILY
Discharge Orders:
Discharge Patient (As Directed); Ordered 05/11/25
Ordered By: Leanne Garza
Care Plan Goals
Care Plan Goals:
Problem: Readiness for enhanced knowledge related to diagnosis and treatment plan
Goal: Understand your diagnosis and treatment plan needs, including medications if applicable.
Instructions: Know your diagnosis, underlying causes and treatment plan options, including medications if applicable. Consult with your health care team to learn about your diagnosis and treatment plan, including medications if applicable.
Discharge Date and Time
Discharge Date/Time: 05/11/25 18:22
Print Language: MALIAN

Documented by User: Leanne Garza MD 05/11/25 18:58
Discharge Summary
Discharge Data
Date of Admission: 05/10/25
Date of Discharge: 05/11/25
Discharge Plan
-
Patient Disposition: Home (Routine Discharge)
Discharge Diagnosis/Procedures: Gastritis
Non ischemic troponin elevation
Sinusitis
Condition: Good
Diet: As tolerated
Activity: As tolerated
Driving Restrictions: As prior to admission
Bathing Restrictions: None
Activity Restrictions/Additional Instructions:
Please consider outpatient allergy testing for Augmentin
Please follow up with cardiology. If chest pain returns, please let your rubberizing mechanic know.
Cefuroxime 500mg twice daily for next 5 days for sinus infection
Referrals:
Cathy Walsh PA [Family Provider, Family Practice] - in less than 1 week
Alejandro Hall MD [Active, Cardiology] - in one to two weeks
Prescriptions:
New
cefuroxime axetil 500 mg tablet
500 mg PO BID 5 Days Qty: 10 0RF
Continued
lisinopril 20 mg Tablet
20 mg PO DAILY
alprazolam 0.5 mg Tablet
0.5 mg PO DAILYPRN PRN (Reason: anxiety)
bupropion HCl [Wellbutrin XL] 150 mg Tablet Extended Release 24 Hr
150 mg PO DAILY
pregabalin 50 mg Capsule
50 mg PO TID
pregabalin 100 mg Capsule
100 mg PO HS
oxycodone 15 mg Tablet
15 mg PO 5/D
furosemide 20 mg Tablet
20 mg PO DAILYPRN PRN (Reason: Weight gain of 3 pounds) Qty: 30 0RF
Rx Instructions:
3 lbs overnight or 5 lbs in a week
metoprolol succinate 25 mg tablet extended release 24 hr
50 mg PO DAILY
Discharge Orders:
Discharge Patient (As Directed); Ordered 05/11/25
Ordered By: Leanne Garza
Care Plan Goals
Care Plan Goals:
Problem: Readiness for enhanced knowledge related to diagnosis and treatment plan
Goal: Understand your diagnosis and treatment plan needs, including medications if applicable.
Instructions: Know your diagnosis, underlying causes and treatment plan options, including medications if applicable. Consult with your health care team to learn about your diagnosis and treatment plan, including medications if applicable.
Discharge Date and Time
Discharge Date/Time: 05/11/25 18:22
Print Language: MALIAN
== END 2025-05-11 18:22 | disposition home or self-care (01) ==
LOC: IVU 13:56
PROVIDERS: Internal Medicine Cardiovascular Disease; Nurse Practitioner; Physician Assistant; ADMITTING PHYSICIAN Hospitalist; ATTENDING PHYSICIAN General Practice; EMERGENCY PHYSICIAN Emergency Medicine; FAMILY PHYSICIAN Physician Assistant
DX: K29.70 Gastritis, unspecified, without bleeding (principal); F11.20 Opioid dependence, uncomplicated; F32.A Depression, unspecified; F41.9 Anxiety disorder, unspecified; R79.89 Other specified abnormal findings of blood chemistry; M48.02 Spinal stenosis, cervical region; G89.29 Other chronic pain; I50.22 Chronic systolic (congestive) heart failure; D25.9 Leiomyoma of uterus, unspecified; I42.8 Other cardiomyopathies; J32.9 Chronic sinusitis, unspecified; I11.0 Hypertensive heart disease with heart failure; Z79.899 Other long term (current) drug therapy; Z87.891 Personal history of nicotine dependence; Z98.1 Arthrodesis status
CPT/HCPCS: 71275; 80053; 83690; 83880; 84484; 85025; 85379; 85652; 86140; 93005; 93306; 96361; 96374; 96375; 96376; 99284; G0378; Q9967

== ENCOUNTER → 2025-06-24 14:55 | Outpatient (REF) | payer OTHER, SELFPAY | LOC: HWRCS 14:55 | PROVIDERS: ATTENDING PHYSICIAN Nurse Practitioner; FAMILY PHYSICIAN Physician Assistant | DX: I50.20 Unspecified systolic (congestive) heart failure (principal) | CPT/HCPCS: 93306 ==